=== PATIENT | female | born 1980 | race African-American/Black ===

== ENCOUNTER 2018-05-12 12:59 | Emergency (ER) | payer SELFPAY ==
[2018-05-12] MEDS ORDERED: FAMOTIDINE INJ/PF 20 MG/2 ML SDV IV ONE (13:19)
[2018-05-12] MEDS ORDERED: NORMAL SALINE 1000 ML 1,000 ML IV ONE (13:19)
[2018-05-12] MEDS ORDERED: ONDANSETRON HCL INJ/PF 4 MG/2 ML SDV IV ONE (13:19)
--- NOTE | 2018-05-12 13:21 | ER Document Report ---
ED GI/ - General Chief Complaint: Abdominal Pain Stated Complaint: VOMITING Time Seen by Provider: 05/12/18 13:10 Notes: 37-year-old female to the emergency department complaining of crampy abdominal pain, diarrhea and vomiting. Started after she went to [employer] last night. Has had for 5 episodes of crampy abdominal pain with diarrhea. Multiple episodes of vomiting. Cannot keep anything down. Denies any fever, chills, sweats. Denies any other problems at this time. TRAVEL OUTSIDE OF THE [place] IN LAST 30 DAYS: No - HPI Patient complains to provider of: Abdominal pain, Diarrhea, Vomiting - Related Data Allergies/Adverse Reactions: aspirin [Aspirin] Allergy (Verified 05/12/18 13:01) azithromycin [From Zithromax] Allergy (Verified 05/12/18 13:01) morphine [Morphine] Allergy (Verified 05/12/18 13:01) Penicillins Allergy (Verified 05/12/18 13:01) Past Medical History - General Information source: Patient - Social History Smoking Status: Current Every Day Smoker Chew tobacco use (# tins/day): No Frequency of alcohol use: None Drug Abuse: None Lives with: Family Family History: Reviewed & Not Pertinent Patient has suicidal ideation: No Patient has homicidal ideation: No Pulmonary Medical History: Reports: Hx Asthma Renal/ Medical History: Denies: Hx Peritoneal Dialysis - Immunizations Hx Diphtheria, Pertussis, Tetanus Vaccination: Yes Hx Pneumococcal Vaccination: 10/10/00 Review of Systems - Review of Systems Constitutional: No symptoms reported EENT: No symptoms reported Cardiovascular: No symptoms reported Respiratory: No symptoms reported Gastrointestinal: Abdominal pain, Diarrhea, Nausea, Vomiting Genitourinary: No symptoms reported Female Genitourinary: No symptoms reported Musculoskeletal: No symptoms reported Skin: No symptoms reported Hematologic/Lymphatic: No symptoms reported Neurological/Psychological: No symptoms reported Physical Exam - Vital signs Interpretation: Normal - General General appearance: Appears well, Alert - HEENT Head: Normocephalic, Atraumatic Eyes: Normal Pupils: PERRL - Respiratory Respiratory status: No respiratory distress Chest status: Nontender Breath sounds: Normal Chest palpation: Normal - Cardiovascular Rhythm: Regular Heart sounds: Normal auscultation Murmur: No - Abdominal Inspection: Normal Distension: No distension Bowel sounds: Hyperactive Tenderness: Nontender Organomegaly: No organomegaly - Back Back: Normal, Nontender - Extremities General upper extremity: Normal inspection, Nontender, Normal color, Normal ROM , Normal temperature General lower extremity: Normal inspection, Nontender, Normal color, Normal ROM , Normal temperature, Normal weight bearing. No: Khanh's sign - Neurological Neuro grossly intact: Yes Cognition: Normal Orientation: AAOx4 Janet Coma Scale Eye Opening: Spontaneous Florence Coma Scale Verbal: Oriented Florence Coma Scale Motor: Obeys Commands Janet Coma Scale Total: 15 Speech: Normal Motor strength normal: LUE, RUE, LLE, RLE Sensory: Normal - Psychological Associated symptoms: Normal affect, Normal mood - Skin Skin Temperature: Warm Skin Moisture: Dry Skin Color: Normal Course - Re-evaluation Re-evalutation: 05/12/18 13:32 At this time we will give her some Zofran, fluids. Check her labs and reassess. 05/12/18 14:25 Labs are unremarkable. Getting IV fluids and medicines at this time. Will DC shortly with nausea medicines. Instructions given with regards to acute gastroenteritis. 05/12/18 14:27 Laboratory 05/12/18 05/12/18 05/12/18 13:30 13:30 13:30 WBC 4.6 RBC 4.45 Hgb 13.8 Hct 40.9 MCV 92 MCH 31.0 MCHC 33.7 RDW 13.3 Plt Count 255 Seg Neutrophils % 46.9 Lymphocytes % 45.3 H Monocytes % 6.5 Eosinophils % 0.9 Basophils % 0.4 Absolute Neutrophils 2.2 Absolute Lymphocytes 2.1 Absolute Monocytes 0.3 Absolute Eosinophils 0.0 Absolute Basophils 0.0 Sodium 143.1 Potassium 4.7 Chloride 106 Carbon Dioxide 28 Anion Gap 9 BUN 13 Creatinine 0.83 Est GFR ( Amer) > 60 Est GFR (Non-Af Amer) > 60 Glucose 91 Calcium 9.6 Total Bilirubin 0.6 Direct Bilirubin 0.3 Neonat Total Bilirubin Not Reportable Neonat Direct Bilirubin Not Reportable Neonat Indirect Bili Not Reportable AST 26 ALT 33 Alkaline Phosphatase 96 Total Protein 7.3 Albumin 3.7 Lipase 72.2 Urine HCG, Qual NEGATIVE - Laboratory Result Diagrams: 05/12/18 13:30 05/12/18 13:30 Laboratory results interpreted by me: 05/12/18 13:30 Lymphocytes % 45.3 H Discharge - Discharge Clinical Impression: Gastroenteritis Condition: Good Disposition: HOME, SELF-CARE Instructions: Abdominal Pain ([facility]), Antinausea Medication ([facility]), Gastroenteritis (adult) ([facility]), Vomiting ([facility]) Additional Instructions: Take nausea medicines as needed for your nausea and vomiting. It is very important to this down as the diarrhea can lead to dehydration. In the event that you are unable to tolerate liquids, the nausea medicine is not working, you develop any blood in the stool or any worsening symptoms or concerns please return for repeat evaluation in the next 24 hours. Prescriptions: Ondansetron [Zofran Odt 4 mg Tablet] 1 - 2 tab PO Q4H PRN #15 tab.rapdis PRN Reason: For Nausea/Vomiting Ranitidine HCl [Zantac] 150 mg PO BID 7 Days #14 tablet Forms: Return to Work
[2018-05-12 14:00] LABS: ABSOLUTE LYMPHOCYTES (AUTO) 2.1 10^3/uL (0.5-4.7); ABSOLUTE MONOCYTES (AUTO) 0.3 10^3/uL (0.1-1.4); ABSOLUTE NEUT (AUTO) 2.2 10^3/uL (1.7-8.2); BASOPHILS % (AUTO) 0.4 % (0-2); EOSINOPHILS % (AUTO) 0.9 % (0-6); HEMATOCRIT 40.9 % (36.0-47.0); HEMOGLOBIN 13.8 g/dL (12.0-15.5); LYMPHOCYTES % (AUTO) 45.3 % (13-45); MEAN CORPUSCULAR HGB CONC 33.7 g/dL (32.0-36.0); MEAN CORPUSCULAR VOLUME 92 fl (80-97); MONOCYTES % (AUTO) 6.5 % (3-13); PLATELET COUNT 255 10^3/uL (150-450); RED BLOOD COUNT 4.45 10^6/uL (3.72-5.28); RED CELL DISTRIBUTION WIDTH 13.3 % (11.5-14.0); SEGMENTED NEUTROPHILS % (AUTO) 46.9 % (42-78); TOTAL CELLS COUNTED % (AUTO) 100 %; WHITE BLOOD COUNT 4.6 10^3/uL (4.0-10.5)
[2018-05-12 14:12] LABS: ALANINE AMINOTRANSFERASE 33 U/L (9-52); ALBUMIN 3.7 g/dL (3.5-5.0); ALKALINE PHOSPHATASE 96 U/L (38-126); ANION GAP 9 (5-19); ASPARTATE AMINO TRANSFERASE 26 U/L (14-36); BILIRUBIN,TOTAL 0.6 mg/dL (0.2-1.3); BLOOD UREA NITROGEN 13 mg/dL (7-20); CALCIUM 9.6 mg/dL (8.4-10.2); CARBON DIOXIDE 28 mmol/L (22-30); CHLORIDE 106 mmol/L (98-107); GLUCOSE 91 mg/dL (75-110); POTASSIUM 4.7 mmol/L (3.6-5.0); SODIUM 143.1 mmol/L (137-145)
[2018-05-12 14:13] LABS: BILIRUBIN,DIRECT 0.3 mg/dL (0.0-0.4); LIPASE 72.2 U/L (23-300); TOTAL PROTEIN 7.3 g/dL (6.3-8.2)
[2018-05-12 15:06] VITALS: BP 149/87
== END 2018-05-12 14:58 | disposition home or self-care (01) ==
LOC: ER 12:59
DX: K52.9 Noninfective gastroenteritis and colitis, unspecified (principal); R10.9 Unspecified abdominal pain; R11.10 Vomiting, unspecified; F17.200 Nicotine dependence, unspecified, uncomplicated; Z88.6 Allergy status to analgesic agent; Z88.3 Allergy status to other anti-infective agents; Z88.0 Allergy status to penicillin
CPT/HCPCS: 99284; 96374; 96375; 36415; 83690; 85025; 81025; 80053; J2405; J7030; S0028

== ENCOUNTER 2018-05-28 22:26 | Emergency (ER) | payer SELFPAY ==
[2018-05-28] MEDS ORDERED: DOXYCYCLINE HYCLATE 100 MG TABLET PO ONE (23:10)
[2018-05-28] MEDS ORDERED: ONDANSETRON 4 MG TAB.RAPDIS PO ONE (23:10)
[2018-05-28] MEDS ORDERED: DEXAMETHASONE SOD PHOS INJ 10 MG/1 ML VIAL IM ONE (23:10)
[2018-05-28] MEDS ORDERED: ALBUTEROL SULFATE HFA (90 MCG/PUFF) 8 GM MDI (1 MDI/ER DISP) IH ONE (23:10)
--- NOTE | 2018-05-28 23:14 | ER Document Report ---
ED General - General Chief Complaint: Cough Stated Complaint: COUGHING Time Seen by Provider: 05/28/18 23:01 Notes: Patient is a 37-year-old female who presents with complaint of severe sinus congestion, sore throat, recurrent cough. She does have history of asthma. She says her inhalers almost out. Symptoms have been ongoing for 5 days. She has been having fevers up to 102 at home. No vomiting. No abdominal pain. She does have some tightness in her chest with coughing. No chest pain or tightness before the coughing congestion began. No other complaints at this time. She has tried [id number] cold medications as well as over-the- counter allergy medications without any relief. TRAVEL OUTSIDE OF THE [place] IN LAST 30 DAYS: No - Related Data Allergies/Adverse Reactions: aspirin [Aspirin] Allergy (Verified 05/12/18 13:01) azithromycin [From Zithromax] Allergy (Verified 05/12/18 13:01) morphine [Morphine] Allergy (Verified 05/12/18 13:01) Penicillins Allergy (Verified 05/12/18 13:01) Past Medical History - Social History Smoking Status: Never Smoker Frequency of alcohol use: None Drug Abuse: None Family History: Reviewed & Not Pertinent Patient has suicidal ideation: No Patient has homicidal ideation: No Pulmonary Medical History: Reports: Hx Asthma Renal/ Medical History: Denies: Hx Peritoneal Dialysis - Immunizations Hx Diphtheria, Pertussis, Tetanus Vaccination: Yes Hx Pneumococcal Vaccination: 10/10/00 Review of Systems - Review of Systems Notes: My Normal Review Basic REVIEW OF SYSTEMS: CONSTITUTIONAL : Fever EENT: nasal congestion CARDIOVASCULAR: Some chest tightness with coughing. RESPIRATORY: cough and wheezing GASTROINTESTINAL: Denies abdominal pain. Denies nausea, vomiting, or diarrhea. MUSCULOSKELETAL: Denies neck or back pain or joint pain or swelling. SKIN: Denies rash or skin lesions. NEUROLOGICAL: Denies altered mental status or loss of consciousness. Sinus headache. Denies weakness or paralysis or loss of use of either side. Denies problems with gait or speech. Denies sensory or motor loss. ALL OTHER SYSTEMS REVIEWED AND NEGATIVE. Physical Exam - Notes Notes: General Appearance: Well nourished, alert, cooperative, no acute distress, recurrent coughing on exam. Large amount of audible congestion during exam. Vitals: reviewed, See vital signs table. Head: no swelling or tenderness to the head Eyes: PERRL, EOMI, Conjuctiva clear Mouth: No decreasd moisture Nares: Mildly inflamed turbinates. Throat: No tonsillar inflammation, No airway obstruction, No lymphadenopathy Neck: Supple, no neck tenderness, No swelling. Lungs: No wheezing, No rales, No rhonci, No accessory muscle use, good air exchange bilaterally. Heart: Normal rate, Regular rythm, No murmur, no rub Abdomen: Normal BS, soft, No rigidity, No abdominal tenderness, No guarding, no rebound, no abdominal masses, no organomegaly Extremities: good pulses in all extremities, no edema. Skin: warm, dry, appropriate color, no rash Neuro: speech clear, oriented x 3, normal affect, responds appropriately to questions. Cranial nerves II through XII are intact. Patient is able move all extremities on her own without difficulty. Course - Re-evaluation Re-evalutation: 05/28/18 23:19 On exam patient has a large amount of nasal congestion has recurrent dry cough. She did mention chest pain in triage but is more chest tightness with recurrent cough and congestion. I do not suspect this being of cardiac etiology whatsoever. She has had recurrent fevers at home and her symptoms were ongoing for almost a week. I will give her a dose of Decadron as I suspect that it could be bacterial component therefore placed on doxycycline. She said sometimes antibiotics make her throw up so therefore I will give her Zofran. Encourage her to return to ER if she has difficulty breathing, wheezing not responding to inhaler, recurrent fevers not responding to Tylenol, or she feels that she is worsening in weight. Patient agrees with plan will be discharged home. Dictation of this chart was performed using voice recognition software; therefore, there may be some unintended grammatical errors. Discharge - Discharge Clinical Impression: Sinusitis Qualifiers: Sinusitis location: unspecified location Chronicity: acute Recurrence: not specified as recurrent Qualified Code(s): J01.90 - Acute sinusitis, unspecified Acute bronchitis Qualifiers: Bronchitis organism: unspecified organism Qualified Code(s): J20.9 - Acute bronchitis, unspecified Condition: Good Disposition: HOME, SELF-CARE Additional Instructions: Please follow-up closely with primary care doctor in 3-4 days. Please return to the ER immediately if you have difficulty breathing, wheezing not responding to inhaler, recurrent fevers not responding to Tylenol, or if you feel that you are worsening. Prescriptions: Ondansetron [Zofran Odt 4 mg Tablet] 1 tab PO Q4HP PRN #10 tab.rapdis PRN Reason: Doxycycline Hyclate 100 mg PO BID #14 capsule Referrals: GALE HERNANDEZ DO [Primary Care Provider] - Follow up in 3-5 days
[2018-05-28 23:39] VITALS: BP 131/87
== END 2018-05-28 23:49 | disposition home or self-care (01) ==
LOC: ER 22:26
DX: J01.90 Acute sinusitis, unspecified (principal); J20.9 Acute bronchitis, unspecified; R50.9 Fever, unspecified; Z88.6 Allergy status to analgesic agent; Z88.3 Allergy status to other anti-infective agents; Z88.0 Allergy status to penicillin
CPT/HCPCS: 99283; 96372; S0119; J1100; J3490

== ENCOUNTER 2018-06-01 10:41 | Emergency (ER) | payer SELFPAY ==
[2018-06-01] MEDS ORDERED: PREDNISONE 20 MG TABLET PO ONE (11:05)
--- NOTE | 2018-06-01 11:07 | ER Document Report ---
ED General - General Mode of Arrival: Ambulatory Information source: Patient TRAVEL OUTSIDE OF THE [place] IN LAST 30 DAYS: No <EDEL LANDEROS - Last Filed: 06/01/18 13:24> <VEE MOHAN - Last Filed: 06/01/18 13:57> - General Chief Complaint: Breathing Difficulty Stated Complaint: DIFFICULTY BREATHING Time Seen by Provider: 06/01/18 10:57 Notes: Patient is a 37 year old female presenting to the emergency department via EMS complaining of cough and congestion onset over a week ago. Patient was seen in the emergency department for similar symptoms on 05/28/2018 and discharged home with Doxycycline. Patient states she is continuing to have a productive cough with yellowish sputum. Patient states she uses an albuterol rescue inhaler. Patient's last menstrual period was on 05/22/2018. (EDEL LANDEROS) - Related Data Allergies/Adverse Reactions: aspirin [Aspirin] Allergy (Verified 05/12/18 13:01) azithromycin [From Zithromax] Allergy (Verified 05/12/18 13:01) morphine [Morphine] Allergy (Verified 05/12/18 13:01) Penicillins Allergy (Verified 05/12/18 13:01) Past Medical History - General Information source: Patient - Social History Smoking Status: Never Smoker Cigarette use (# per day): No Chew tobacco use (# tins/day): No Smoking Education Provided: No Frequency of alcohol use: None Family History: Reviewed & Not Pertinent Pulmonary Medical History: Reports: Hx Asthma - Immunizations Hx Diphtheria, Pertussis, Tetanus Vaccination: Yes Hx Pneumococcal Vaccination: 10/10/00 <EDEL LANDEROS - Last Filed: 06/01/18 13:24> Review of Systems - Review of Systems Constitutional: No symptoms reported EENT: See HPI Cardiovascular: No symptoms reported Respiratory: See HPI, Cough Gastrointestinal: No symptoms reported Genitourinary: No symptoms reported Female Genitourinary: No symptoms reported Musculoskeletal: No symptoms reported Skin: No symptoms reported Hematologic/Lymphatic: No symptoms reported Neurological/Psychological: No symptoms reported -: Yes All other systems reviewed and negative <EDEL LANDEROS - Last Filed: 06/01/18 13:24> Physical Exam <EDEL LANDEROS - Last Filed: 06/01/18 13:24> <VEE MOHAN - Last Filed: 06/01/18 13:57> - Vital signs Vitals: Temp Resp BP Pulse Ox 97.9 F 18 139/97 H 98 06/01/18 10:50 06/01/18 10:50 06/01/18 10:50 06/01/18 10:50 - Notes Notes: GENERAL: Alert, interacts well. No acute distress. HEAD: Normocephalic, atraumatic. EYES: Pupils equal, round, and reactive to light. Extraocular movements intact. ENT: Oral mucosa moist, tongue midline. NECK: Full range of motion. Supple. Trachea midline. LUNGS: Bronchitic cough, wheezes. Nasal and sinus congestion. HEART: Regular rate and rhythm. No murmurs, gallops, or rubs. ABDOMEN: Soft, non-tender. Non-distended. Bowel sounds present in all 4 quadrants. EXTREMITIES: Moves all 4 extremities spontaneously. NEUROLOGICAL: Alert and oriented x3. Normal speech. PSYCH: Normal affect, normal mood. SKIN: Warm, dry, normal turgor. No rashes or lesions noted. (EDEL LANDEROS) Course - Laboratory Result Diagrams: 06/01/18 11:06 06/01/18 11:06 <EDEL LANDEROS - Last Filed: 06/01/18 13:24> - Laboratory Result Diagrams: 06/01/18 11:06 06/01/18 11:06 - Diagnostic Test Radiology reviewed: Image reviewed, Reports reviewed - Chest x-ray does not show an acute pulmonary process <VEE MOHAN - Last Filed: 06/01/18 13:57> - Re-evaluation Re-evalutation: 06/01/18 13:24 Patient retracted. Patient states she is feels a little better after receiving a breathing treatment. (EDEL LANDEROS) 06/01/18 13:57 After the DuoN[employer], the patient's wheezes have cleared, she does have coarse bronchitic cough when I ask her to cough, but I do not hear wheezes with it at this time. (VEE MOHAN) - Vital Signs Vital signs: Temp Pulse Resp BP Pulse Ox 97.9 F 74 18 126/88 H 100 06/01/18 10:50 06/01/18 11:42 06/01/18 11:42 06/01/18 11:42 06/01/18 11:42 - Laboratory Laboratory results interpreted by me: 06/01/18 11:06 Seg Neuts % (Manual) 29 L Lymphocytes % (Manual) 57 H Abs Neuts (Manual) 1.5 L Discharge <EDEL LANDEROS - Last Filed: 06/01/18 13:24> <VEE MOHAN - Last Filed: 06/01/18 13:57> - Discharge Clinical Impression: Bronchitis, acute, with bronchospasm Condition: Stable Disposition: HOME, SELF-CARE Additional Instructions: Bronchitis with Bronchospasm (Wheezing): You have bronchitis with bronchospasm (wheezing). Sometimes people develop wheezing with a chest cold. This occurs either because of an underlying tendency toward asthma or because the virus itself irritates the bronchial tubes. This irritation causes cough, shortness of breath, and wheezing. Emergency treatment of bronchospasm may include adrenaline shots or bronchodilator aerosol. You may feel lightheaded and have a rapid pulse for an hour or two. Rest and get plenty of fluids. At home, we'll treat you with a bronchodilator inhaler. Corticosteroids may be required for some patients. Until you recover, avoid chemical fumes, dusts, pollens, and exercising in very cold or dry air. If you smoke, stop now! Most cases of bronchitis get better without antibiotics. We prescribe antibiotics when we believe bacteria are damaging your airways, or if there's high risk the bronchitis will worsen into pneumonia. Increase your fluid intake. A cool mist humidifier may make your lungs more comfortable. An expectorant (cough medicine that loosens phlegm) can help. Repeated episodes of bronchitis and bronchospasm may result in lung damage -- for example, chronic bronchitis, recurrent pneumonias, or emphysema. If you develop a fever, increased wheezing, chest pain, or severe shortness of breath, you should contact the doctor immediately. Start the prednisone as prescribed tomorrow. Continue the doxycycline you were prescribed a few days ago. Use the albuterol inhaler 2 puffs every 4 hours for wheezing for the next few days. Drink plenty of fluids. Take Robitussin-DM to help suppress your cough. Rest. Follow-up with your doctor if not improving. RETURN TO THE EMERGENCY ROOM IF ANY NEW OR WORSENING SYMPTOMS. Prescriptions: Albuterol Sulfate [Proair HFA] 1 - 2 puff IH Q4 PRN #1 inhaler PRN Reason: Prednisone [Deltasone 10 mg Tablet] 10 mg PO ASDIR PRN #21 tablet PRN Reason: Referrals: GALE HERNANDEZ DO [Primary Care Provider] - Follow up as needed Scribe Attestation: 06/01/18 12:47 I personally performed the services described in the documentation, reviewed and edited the documentation which was dictated to the scribe in my presence, and it accurately records my words and actions. (VEE MOHAN) Scribe Documentation - Scribe Written by Naresh:: Naresh Bishop, 06/01/2018 11:13 acting as scribe for :: Joie <EDEL LANDEROS - Last Filed: 06/01/18 13:24>
[2018-06-01 11:38] LABS: HEMATOCRIT 39.5 % (36.0-47.0); HEMOGLOBIN 13.5 g/dL (12.0-15.5); MEAN CORPUSCULAR HEMOGLOBIN 31.2 pg (27.0-33.4); MEAN CORPUSCULAR HGB CONC 34.3 g/dL (32.0-36.0); MEAN CORPUSCULAR VOLUME 91 fl (80-97); PLATELET COUNT 300 10^3/uL (150-450); RED BLOOD COUNT 4.35 10^6/uL (3.72-5.28); RED CELL DISTRIBUTION WIDTH 13.7 % (11.5-14.0); WHITE BLOOD COUNT 5.2 10^3/uL (4.0-10.5)
--- NOTE | 2018-06-01 11:43 | RADIOLOGY REPORT (SQ) ---
EXAM DESCRIPTION: CHEST 2 VIEWS COMPLETED DATE/TIME: 06/01/2018 11:30 am REASON FOR STUDY: Cough, congestion, wheezing COMPARISON: None. EXAM PARAMETERS: NUMBER OF VIEWS: two views TECHNIQUE: Digital Frontal and Lateral radiographic views of the chest acquired. RADIATION DOSE: NA LIMITATIONS: none FINDINGS: LUNGS AND PLEURA: No opacities, masses or pneumothorax. No pleural effusion. MEDIASTINUM AND HILAR STRUCTURES: No masses or contour abnormalities. HEART AND VASCULAR STRUCTURES: Heart normal size. No evidence for failure. BONES: No acute findings. HARDWARE: None in the chest. OTHER: No other significant finding. IMPRESSION: NO ACUTE RADIOGRAPHIC FINDING IN THE CHEST. TECHNICAL DOCUMENTATION: JOB ID: [id number] [employer]- All Rights Reserved Reading location - IP/workstation name: [email or web address]
[2018-06-01 11:44] LABS: ALANINE AMINOTRANSFERASE 24 U/L (9-52); ALBUMIN 3.6 g/dL (3.5-5.0); ALKALINE PHOSPHATASE 90 U/L (38-126); ANION GAP 9 (5-19); ASPARTATE AMINO TRANSFERASE 21 U/L (14-36); BILIRUBIN,DIRECT 0.2 mg/dL (0.0-0.4); BILIRUBIN,TOTAL 0.5 mg/dL (0.2-1.3); BLOOD UREA NITROGEN 15 mg/dL (7-20); CALCIUM 9.3 mg/dL (8.4-10.2); CARBON DIOXIDE 27 mmol/L (22-30); CHLORIDE 107 mmol/L (98-107); GLUCOSE 89 mg/dL (75-110); POTASSIUM 3.9 mmol/L (3.6-5.0)
[2018-06-01 12:05] LABS: ABSOLUTE LYMPHOCYTES# (MANUAL) 3.1 10^3/uL (0.5-4.7); ABSOLUTE MONOCYTES # (MANUAL) 0.6 10^3/uL (0.1-1.4); ABSOLUTE NEUTROPHILS# (MANUAL) 1.5 10^3/uL (1.7-8.2); BASOPHILS % (MANUAL) 0 % (0-2); EOSINOPHILS % (MANUAL) 1 % (0-6); LYMPHOCYTES % (MANUAL) 57 % (13-45); MONOCYTES % (MANUAL) 11 % (3-13); SEGMENTED NEUTROPHILS % (MAN) 29 % (42-78); TOTAL CELLS COUNTED 100
[2018-06-01 12:06] LABS: OVALOCYTES SLIGHT; PLATELET COMMENT ADEQUATE; POIKILOCYTOSIS SLIGHT
[2018-06-01] MEDS ORDERED: IPRATROPIUM/ALBUTEROL 0.5-2.5 MG/3 ML AMPUL NEB ONE (12:37)
[2018-06-01 13:54] VITALS: BP 120/71
== END 2018-06-01 14:10 | disposition home or self-care (01) ==
LOC: ER 10:41
DX: J20.9 Acute bronchitis, unspecified (principal); R05 Cough; R09.81 Nasal congestion; J45.909 Unspecified asthma, uncomplicated; Z79.899 Other long term (current) drug therapy; Z88.6 Allergy status to analgesic agent; Z88.1 Allergy status to other antibiotic agents; Z88.5 Allergy status to narcotic agent; Z88.0 Allergy status to penicillin
CPT/HCPCS: 36415; 71046; 80053; 84703; 85025; 99285

== ENCOUNTER 2018-08-20 19:39 | Emergency (ER) | payer SELFPAY ==
[2018-08-20 20:18] LABS: APPEARANCE,URINE SLIGHTLY-CLOUDY; BILIRUBIN,URINE NEGATIVE (NEGATIVE); COLOR,URINE YELLOW; GLUCOSE, URINE NEGATIVE (NEGATIVE); KETONES,URINE NEGATIVE (NEGATIVE); LEUKOCYTE ESTERASE,URINE NEGATIVE (NEGATIVE); NITRITE,URINE NEGATIVE (NEGATIVE); PROTEIN,URINE NEGATIVE (NEGATIVE); URINE SPECIFIC GRAVITY 1.017; UROBILINOGEN,URINE NEGATIVE mg/dL (<2.0)
[2018-08-20 20:20] LABS: ABSOLUTE EOSINOPHILS # (AUTO) 0.1 10^3/uL (0.0-0.6); ABSOLUTE LYMPHOCYTES (AUTO) 3.2 10^3/uL (0.5-4.7); ABSOLUTE MONOCYTES (AUTO) 0.4 10^3/uL (0.1-1.4); ABSOLUTE NEUT (AUTO) 3.6 10^3/uL (1.7-8.2); BASOPHILS % (AUTO) 0.6 % (0-2); EOSINOPHILS % (AUTO) 1.4 % (0-6); HEMATOCRIT 40.3 % (36.0-47.0); HEMOGLOBIN 13.5 g/dL (12.0-15.5); LYMPHOCYTES % (AUTO) 43.8 % (13-45); MEAN CORPUSCULAR HEMOGLOBIN 30.4 pg (27.0-33.4); MEAN CORPUSCULAR HGB CONC 33.6 g/dL (32.0-36.0); MEAN CORPUSCULAR VOLUME 90 fl (80-97); MONOCYTES % (AUTO) 5.5 % (3-13); PLATELET COUNT 291 10^3/uL (150-450); RED BLOOD COUNT 4.46 10^6/uL (3.72-5.28); RED CELL DISTRIBUTION WIDTH 13.7 % (11.5-14.0); SEGMENTED NEUTROPHILS % (AUTO) 48.7 % (42-78); TOTAL CELLS COUNTED % (AUTO) 100 %; WHITE BLOOD COUNT 7.4 10^3/uL (4.0-10.5)
[2018-08-20 20:21] VITALS: BP 149/92
[2018-08-20] MEDS ORDERED: NORMAL SALINE 1000 ML 1,000 ML IV ONE (20:43)
[2018-08-20] MEDS ORDERED: ONDANSETRON HCL INJ/PF 4 MG/2 ML SDV IV ONE (20:43)
--- NOTE | 2018-08-20 20:44 | ER Document Report ---
ED Medical Screen (RME) - General Chief Complaint: Abdominal Pain Stated Complaint: ABDOMINAL PAIN Time Seen by Provider: 08/20/18 20:40 Notes: 37-year-old female chief complaint of abdominal pain starting 3 days ago, reports repeated episodes of diarrhea about 6 times a day, vomited a couple of times today, states she cannot eat. No obvious contacts, recent travel or exposure. Pain is in the left lower abdomen. Denies other areas of pain. Denies any surgeries. Denies . TRAVEL OUTSIDE OF THE [place] IN LAST 30 DAYS: No - Related Data Allergies/Adverse Reactions: aspirin [Aspirin] Allergy (Verified 05/12/18 13:01) azithromycin [From Zithromax] Allergy (Verified 05/12/18 13:01) morphine [Morphine] Allergy (Verified 05/12/18 13:01) Penicillins Allergy (Verified 05/12/18 13:01) Past Medical History - Social History Frequency of alcohol use: None Drug Abuse: None Pulmonary Medical History: Reports: Hx Asthma Renal/ Medical History: Denies: Hx Peritoneal Dialysis - Immunizations Hx Diphtheria, Pertussis, Tetanus Vaccination: Yes Physical Exam - Vital signs Vitals: Temp Pulse Resp BP Pulse Ox 98.2 F 75 18 149/92 H 100 08/20/18 20:20 08/20/18 20:20 08/20/18 20:20 08/20/18 20:20 08/20/18 20:20 - General General appearance: Appears well In distress: None - Abdominal Tenderness: Tender - Mild generalized lower abdominal tenderness, possibly worse than the left, limited evaluation because of sitting position Course - Re-evaluation Re-evalutation: 08/20/18 20:43 I have greeted and performed a rapid initial assessment of this patient. A comprehensive ED assessment and evaluation of the patient, analysis of test results and completion of the medical decision making process will be conducted by additional ED providers. Note: nursing protocol has already been ordered and has partially completed upon my assessment - Vital Signs Vital signs: Temp Pulse Resp BP Pulse Ox 98.2 F 75 18 149/92 H 100 08/20/18 20:20 08/20/18 20:20 08/20/18 20:20 08/20/18 20:20 08/20/18 20:20 - Laboratory Result Diagrams: 08/20/18 19:50 08/20/18 19:50 Doctor's Discharge - Discharge Referrals: GALE HERNANDEZ DO [Primary Care Provider] - Follow up as needed
[2018-08-20 21:01] LABS: ALANINE AMINOTRANSFERASE 25 U/L (9-52); ALBUMIN 4.1 g/dL (3.5-5.0); ALKALINE PHOSPHATASE 115 U/L (38-126); ANION GAP 12 (5-19); ASPARTATE AMINO TRANSFERASE 25 U/L (14-36); BILIRUBIN,DIRECT 0.3 mg/dL (0.0-0.4); BILIRUBIN,TOTAL 0.5 mg/dL (0.2-1.3); BLOOD UREA NITROGEN 11 mg/dL (7-20); CALCIUM 9.4 mg/dL (8.4-10.2); CARBON DIOXIDE 28 mmol/L (22-30); CHLORIDE 104 mmol/L (98-107); GLUCOSE 92 mg/dL (75-110); LIPASE 113.4 U/L (23-300); POTASSIUM 4.3 mmol/L (3.6-5.0); SODIUM 143.7 mmol/L (137-145); TOTAL PROTEIN 7.5 g/dL (6.3-8.2)
[2018-08-20] MEDS ORDERED: LOPERAMIDE HCL 2 MG CAPSULE PO ONE (21:13)
[2018-08-20] MEDS ORDERED: METRONIDAZOLE 500 MG TABLET PO ONE (21:33)
[2018-08-20] MEDS ORDERED: CEPHALEXIN 500 MG CAPSULE PO ONE (21:33)
--- NOTE | 2018-08-20 21:35 | ER Document Report ---
ED General - General Chief Complaint: Abdominal Pain Stated Complaint: ABDOMINAL PAIN Time Seen by Provider: 08/20/18 20:40 Notes: Patient is a 37-year old female without chronic medical problems who presents with 2-3 days of diarrhea, vomiting and left lower quadrant abdominal pain. She describes the left lower quadrant as being a constant, aching, throbbing pain. Nothing improves or worsens the pain. She states that she has been able to tolerate oral intake but does have ongoing nausea. She denies any history of similar symptoms in the past. She has not seen her general doctor regarding today's concerns. She has not had fever or constitutional symptoms at home. TRAVEL OUTSIDE OF THE [place] IN LAST 30 DAYS: No - Related Data Allergies/Adverse Reactions: aspirin [Aspirin] Allergy (Verified 05/12/18 13:01) azithromycin [From Zithromax] Allergy (Verified 05/12/18 13:01) morphine [Morphine] Allergy (Verified 05/12/18 13:01) Penicillins Allergy (Verified 05/12/18 13:01) Past Medical History - General Information source: Patient - Social History Smoking Status: Current Every Day Smoker Frequency of alcohol use: None Drug Abuse: None Lives with: Family Family History: Reviewed & Not Pertinent Patient has suicidal ideation: No Patient has homicidal ideation: No Pulmonary Medical History: Reports: Hx Asthma Renal/ Medical History: Denies: Hx Peritoneal Dialysis - Immunizations Hx Diphtheria, Pertussis, Tetanus Vaccination: Yes Hx Pneumococcal Vaccination: 10/10/00 Review of Systems - Review of Systems Notes: Constitutional: Negative for fever. HENT: Negative for sore throat. Eyes: Negative for visual changes. Cardiovascular: Negative for chest pain. Respiratory: Negative for shortness of breath. Gastrointestinal: Positive for abdominal pain, vomiting and diarrhea Genitourinary: Negative for dysuria. Musculoskeletal: Negative for back pain. Skin: Negative for rash. Neurological: Negative for headaches, weakness or numbness. 10 point ROS negative except as marked above and in HPI. Physical Exam - Vital signs Vitals: Temp Pulse Resp BP Pulse Ox 98.2 F 75 18 149/92 H 100 08/20/18 20:20 08/20/18 20:20 08/20/18 20:20 08/20/18 20:20 08/20/18 20:20 Interpretation: Normal Notes: PHYSICAL EXAMINATION: GENERAL: Well-appearing, well-nourished and in no acute distress. HEAD: Atraumatic, normocephalic. EYES: Pupils equal round and reactive to light, extraocular movements intact, sclera anicteric, conjunctiva are normal. ENT: nares patent, oropharynx clear without exudates. Moist mucous membranes. NECK: Normal range of motion, supple without lymphadenopathy LUNGS: Breath sounds clear to auscultation bilaterally and equal. No wheezes rales or rhonchi. HEART: Regular rate and rhythm without murmurs ABDOMEN: Soft, mild focal tenderness to the left lower quadrant with no additional areas of localized tenderness. Normoactive bowel sounds. No guarding, no rebound. No masses appreciated. EXTREMITIES: Normal range of motion, no pitting or edema. No cyanosis. NEUROLOGICAL: No focal neurological deficits. Moves all extremities spontaneously and on command. PSYCH: Normal mood, normal affect. SKIN: Warm, Dry, normal turgor, no rashes or lesions noted. Course - Re-evaluation Re-evalutation: 08/20/18 21:32 Patient presents with focal left lower quadrant abdominal tenderness with associated nausea, vomiting and Promise. Her abdominal exam is otherwise completely benign without any other areas of terminal tenderness on palpation. Her labs are unremarkable without evidence of leukocytosis. She has no upper abdominal pain to suggest a biliary pathology, pancreatitis, hepatitis. She has tolerated oral intake without any difficulty. Very low clinical suspicion for acute appendicitis, bowel obstruction. Given the absence of fever, normal white blood cell count, otherwise very reassuring abdominal exam patient and I have discussed proceeding with CT versus outpatient follow-up on empiric antibiotics for presumed diagnosis of diverticulitis. The patient has understood the risks and benefits of CT versus treatment based on exam, vitals and history and has elected to avoid CT. She will be started on cephalexin and metronidazole, NSAIDs for pain, and Zofran as needed for nausea. At this time will discharge with return precautions and follow-up recommendations. Verbal discharge instructions given a the bedside and opportunity for questions given. Medication warnings reviewed. Patient is in agreement with this plan and has verbalized understanding of return precautions and the need for primary care follow-up in the next 24-72 hours. - Vital Signs Vital signs: Temp Pulse Resp BP Pulse Ox 98.2 F 75 18 149/92 H 100 08/20/18 20:20 08/20/18 20:20 08/20/18 20:20 08/20/18 20:20 08/20/18 20:20 - Laboratory Result Diagrams: 08/20/18 19:50 08/20/18 19:50 Discharge - Discharge Clinical Impression: Acute diverticulitis, Abdominal pain, left lower quadrant Condition: Good Disposition: HOME, SELF-CARE Additional Instructions: You were seen today for focal pain in your left lower quadrant. Your labs, exam , and imag history Ing suggest a diagnosis of diverticulitis. This is an inflammation of a part of your colon. You are being started on antibiotics to treat this infection and inflammation. Please take all of them as directed and complete them even if your symptoms resolve. For your pain: Take ibuprofen 600 mg and acetaminophen 1000 mg every 6 hours together as needed for pain. Please follow-up with your primary care physician within the next 48 hours. Return to the emergency department immediately if you develop worsening pain, persistent vomiting, began having bloody stools, develop a fever of greater than 101F, or have any other symptoms that are concerning to you. Prescriptions: Cephalexin Monohydrate [Keflex 500 mg Capsule] 500 mg PO Q6H 7 Days capsule Metronidazole [Flagyl 500 mg Tablet] 500 mg PO Q6H #28 tablet Ondansetron [Zofran Odt 4 mg Tablet] 1 - 2 tab PO Q4H PRN #15 tab.rapdis PRN Reason: For Nausea/Vomiting Referrals: GALE HERNANDEZ DO [NO LOCAL MD] - Follow up in 3-5 days
== END 2018-08-20 21:49 | disposition home or self-care (01) ==
LOC: ER 19:39
DX: K57.92 Diverticulitis of intestine, part unspecified, without perforation or abscess without bleeding (principal); R10.32 Left lower quadrant pain; R10.814 Left lower quadrant abdominal tenderness; R19.7 Diarrhea, unspecified; R11.2 Nausea with vomiting, unspecified; F17.200 Nicotine dependence, unspecified, uncomplicated; J45.909 Unspecified asthma, uncomplicated; Z88.6 Allergy status to analgesic agent; Z88.1 Allergy status to other antibiotic agents; Z88.5 Allergy status to narcotic agent; Z88.0 Allergy status to penicillin
CPT/HCPCS: 99284; 96361; 96374; 36415; 83690; 84703; 85025; 80053; 81001; J2405; J7030

== ENCOUNTER 2018-09-26 10:41 | Emergency (ER) | payer SELFPAY ==
[2018-09-26] MEDS ORDERED: METOCLOPRAMIDE HCL INJ/PF 10 MG/2 ML SDV IV ONE (11:06)
[2018-09-26] MEDS ORDERED: DIPHENHYDRAMINE HCL 50 MG/ML VIAL IV ONE (11:06)
[2018-09-26] MEDS ORDERED: KETOROLAC TROMETHAMINE INJ/PF 30 MG/1 ML SDV IV ONE (11:07)
[2018-09-26] MEDS ORDERED: ONDANSETRON 4 MG TAB.RAPDIS PO ONE (11:07)
--- NOTE | 2018-09-26 11:11 | ER Document Report ---
ED General - General Chief Complaint: Nausea/Vomiting Stated Complaint: VOMITING,ABDOMINAL PAIN,FEVER Time Seen by Provider: 09/26/18 11:02 Mode of Arrival: Ambulatory Information source: Patient, [facility] Records Notes: 37-year-old female with asthma presents with complaint of headache, nausea, vomiting and fever. Patient reports a fever of 102 at home. Patient states that today she had persistent vomiting. She denies any abdominal pain except for during vomiting. She denies any chest pain, cough, rhinorrhea, shortness of breath, dysuria, hematuria, vaginal discharge. Patient has not had a flu shot. Headache is located in the temporal region described as a mild throbbing. Patient states that she does have a history of migraines but this headache is not as bad. She did take Tylenol but quickly vomited it. TRAVEL OUTSIDE OF THE [place] IN LAST 30 DAYS: No - HPI Onset: Other Onset/Duration: Gradual, Persistent Quality of pain: Throbbing Severity: Mild Associated symptoms: Fever, Headache, Nausea, Vomiting. denies: Chest pain, Shortness of breath Exacerbated by: Food Relieved by: Denies Similar symptoms previously: Yes Recently seen / treated by doctor: No - Related Data Allergies/Adverse Reactions: aspirin [Aspirin] Allergy (Verified 05/12/18 13:01) azithromycin [From Zithromax] Allergy (Verified 05/12/18 13:01) morphine [Morphine] Allergy (Verified 05/12/18 13:01) Penicillins Allergy (Verified 05/12/18 13:01) Past Medical History - General Information source: Patient, [facility] Records - Social History Smoking Status: Never Smoker Frequency of alcohol use: None Drug Abuse: None Lives with: Family Family History: Reviewed & Not Pertinent Patient has suicidal ideation: No Patient has homicidal ideation: No Pulmonary Medical History: Reports: Hx Asthma Renal/ Medical History: Denies: Hx Peritoneal Dialysis - Immunizations Hx Diphtheria, Pertussis, Tetanus Vaccination: Yes Hx Pneumococcal Vaccination: 10/10/00 Review of Systems - Review of Systems Notes: REVIEW OF SYSTEMS: CONSTITUTIONAL : Denies sweats. Denies recent illness. Denies weight loss, recent hospitalizations. EENT: Denies visual changes, eye pain. Denies sore throat, oral lesions, difficulty swallowing. CARDIOVASCULAR: Denies chest pain. Denies palpitations. Denies lower extremity edema. RESPIRATORY: Denies cough. Denies shortness of breath, wheezing. GASTROINTESTINAL: Denies abdominal distention. Denies diarrhea. Denies blood in vomitus, stools, or per rectum. Denies black, tarry stools. Denies constipation. GENITOURINARY: Denies difficulty urinating, painful urination, frequency, blood in urine, or vaginal discharge. MUSCULOSKELETAL: Denies back or neck pain or stiffness. Denies joint pain or swelling. SKIN: Denies rash, lesions or sores. HEMATOLOGIC : Denies easy bruising or bleeding. LYMPHATIC: Denies swollen glands. NEUROLOGICAL: Denies confusion or altered mental status. Denies loss of consciousness. Denies dizziness or lightheadedness. Denies weakness or paralysis. Denies problems difficulty with ambulation, slurred speech. Denies sensory loss, numbness, or tingling. Denies seizures. PSYCHIATRIC: Denies anxiety or stress. Denies depression, suicidal ideation, or homicidal ideation. Denies visual or auditory hallucinations. Physical Exam - Vital signs Vitals: Temp Pulse Resp BP Pulse Ox 99.2 F 94 20 144/95 H 97 09/26/18 10:45 09/26/18 10:45 09/26/18 10:45 09/26/18 10:45 09/26/18 10:45 - Notes Notes: PHYSICAL EXAMINATION: GENERAL: Ill-appearing but not toxic HEAD: Atraumatic, normocephalic. EYES: Pupils equal round and reactive to light, extraocular movements intact, conjunctiva are normal. ENT: Nares patent, oropharynx clear without exudates. Moist mucous membranes. NECK: Normal range of motion, supple without lymphadenopathy. No nuchal rigidity, meningismus. LUNGS: Breath sounds clear to auscultation bilaterally and equal. No wheezes rales or rhonchi. HEART: Regular rate and rhythm without murmurs ABDOMEN: Soft, nontender, nondistended abdomen. No guarding, no rebound. No masses appreciated. Female : deferred Musculoskeletal: Normal range of motion, no pitting or edema. No cyanosis. NEUROLOGICAL: Cranial nerves grossly intact. Normal speech, normal gait. Normal sensory, motor exams PSYCH: Normal mood, normal affect. SKIN: Warm, Dry, normal turgor, no rashes or lesions noted. Course - Re-evaluation Re-evalutation: Laboratory 09/26/18 09/26/18 11:10 11:10 Urine Color YELLOW Urine Appearance SLIGHTLY-CLOUDY Urine pH 5.0 Ur Specific [place] 1.010 Urine Protein NEGATIVE Urine Glucose (UA) NEGATIVE Urine Ketones NEGATIVE Urine Blood NEGATIVE Urine Nitrite NEGATIVE Urine Bilirubin NEGATIVE Urine Urobilinogen NEGATIVE Ur Leukocyte Esterase TRACE H Urine WBC (Auto) 4 Urine RBC (Auto) 1 Urine Bacteria (Auto) TRACE Squamous Epi Cells Auto 8 Urine Mucus (Auto) RARE Urine Ascorbic Acid NEGATIVE Urine HCG, Qual NEGATIVE Influenza A (Rapid) NEGATIVE Influenza B (Rapid) NEGATIVE Temp Pulse Resp BP Pulse Ox 99.0 F 71 20 116/68 98 09/26/18 12:46 09/26/18 12:46 09/26/18 12:46 09/26/18 12:46 09/26/18 12:46 Presentation of an overall well-appearing patient in no acute distress with complaints of nausea, vomiting,headache . This is consistent with likely viral illness. Patient has no abdominal tenderness on exam and specifically no tenderness in the RLQ, LLQ, RUQ. Overall well hydrated on exam. Vital signs reviewed upon arrival and within normal limits. Although the patient reports fever she is afebrile here and has not taking any medication today. She is able to tolerate oral intake here in the emergency department after 1 dose of Reglan. Low clinical suspicion for any acute life-threatening etiology based on exam and history including acute cholecystitis, SBO, appendicitis, nephrolithiasis, or pylonephritis. Headache was resolved with Reglan and Benadryl. I do not suspect meningitis as the patient is neurologically intact, has no nuchal rigidity or meningismus. Will plan for discharge at this time with return precautions and followup recommendations. 09/26/18 12:38 Patient reports improvement of headache, nausea after receiving Reglan, Benadryl and Toradol. 09/26/18 12:56 Patient was evaluated and treated as appropriate for the patient's presenting symptoms and complaint, with consideration of any critical or life threatening conditions that may be associated with their obtained history and exam as noted above. All results were discussed with patient. Patient provided the opportunity to ask questions, and express concerns. Patient was educated on treatments based on their presumed diagnosis as noted above. At this time we will discharge the patient with return precautions and follow-up recommendations. Verbal discharge instructions given a the bedside. Medication warnings reviewed. Patient is in agreement with this plan and has verbalized understanding of return precautions. After careful consideration I feel that that patient can be safely discharged from the emergency department, they were advised to followup with a primary care physician in 2-3 days. Dictation on this chart was performed using voice recognition software and may result in unintended grammatical, spelling, syntax or errors. - Vital Signs Vital signs: Temp Pulse Resp BP Pulse Ox 99.0 F 71 20 116/68 98 09/26/18 12:46 09/26/18 12:46 09/26/18 12:46 09/26/18 12:46 09/26/18 12:46 - Laboratory Laboratory results interpreted by me: 09/26/18 11:10 Ur Leukocyte Esterase TRACE H Discharge - Discharge Clinical Impression: Viral illness Nausea & vomiting Qualifiers: Vomiting type: unspecified Vomiting Intractability: non-intractable Qualified Code(s): R11.2 - Nausea with vomiting, unspecified Headache Qualifiers: Headache type: unspecified Headache chronicity pattern: unspecified pattern Intractability: not intractable Qualified Code(s): R51 - Headache Instructions: Fever ([facility]), Headache ([facility]), Reglan ([facility]), Vomiting ([facility]) Additional Instructions: You were for the flu. Your urinalysis showed no evidence of infection. Your symptoms are likely due to a viral illness and should resolve in the next several days. If you develop diarrhea you can take [id number] loperamide also known as Imodium as needed for diarrhea per box instructions. Continue to stay hydrated with plenty of solution such as Gatorade or Pedialyte. You are being prescribed Zofran to take as needed for nausea and vomiting. Please return if you develop severe abdominal pain, pass out, become unable to tolerate any oral fluids for 12 more hours, or any other symptoms that are concerning to you. You have been seen in the Emergency Department (ED) for a headache. Please use Tylenol (acetaminophen) or Motrin (ibuprofen) as needed for symptoms, but only as written on the box. As we have discussed, please follow up with your primary care doctor as soon as possible regarding today's ED visit and your headache symptoms. Call your doctor or return to the ED if you have a worsening headache, sudden and severe headache, confusion, slurred speech, facial droop, weakness or numbness in any arm or leg, extreme fatigue, or other symptoms that concern you. Prescriptions: Ondansetron [Zofran Odt 4 mg Tablet] 1 tab PO Q6H PRN #15 tab.rapdis PRN Reason: For Nausea/Vomiting Referrals: [facility] [NO LOCAL MD] - Follow up as needed
[2018-09-26 11:53] LABS: APPEARANCE,URINE SLIGHTLY-CLOUDY; BILIRUBIN,URINE NEGATIVE (NEGATIVE); COLOR,URINE YELLOW; GLUCOSE, URINE NEGATIVE (NEGATIVE); KETONES,URINE NEGATIVE (NEGATIVE); LEUKOCYTE ESTERASE,URINE TRACE (NEGATIVE); NITRITE,URINE NEGATIVE (NEGATIVE); PROTEIN,URINE NEGATIVE (NEGATIVE); UROBILINOGEN,URINE NEGATIVE mg/dL (<2.0)
[2018-09-26 11:59] LABS: A TYPE INFLUENZA AG NEGATIVE (NEGATIVE); B INFLUENZA AG NEGATIVE (NEGATIVE)
[2018-09-26 12:54] VITALS: BP 116/68
== END 2018-09-26 12:51 | disposition home or self-care (01) ==
LOC: ER 10:41
DX: R11.2 Nausea with vomiting, unspecified (principal); B34.9 Viral infection, unspecified; R51 Headache; R50.9 Fever, unspecified; R10.9 Unspecified abdominal pain; Z88.6 Allergy status to analgesic agent; Z88.3 Allergy status to other anti-infective agents; Z88.0 Allergy status to penicillin
CPT/HCPCS: 99284; 96374; 96375; 81025; 81001; 87804; J1200; S0119; J1885; J2765

== ENCOUNTER 2019-01-15 12:38 | Emergency (ER) | payer SELFPAY ==
[2019-01-15] MEDS ORDERED: ONDANSETRON HCL INJ/PF 4 MG/2 ML SDV IV ONE (13:20)
--- NOTE | 2019-01-15 13:21 | ER Document Report ---
ED Medical Screen (RME) - General Chief Complaint: Nausea/Vomiting/Diarrhea Stated Complaint: VOMITING Time Seen by Provider: 01/15/19 13:15 Mode of Arrival: Ambulatory Information source: Patient Notes: Patient is a 38-year-old female who presents to the emergency department with complaints of fever, vomiting and left lower quadrant abdominal pain that started on Tuesday. Patient reports she may also be constipated. Patient denies any diarrhea. Denies any sick contacts. Patient denies any dysuria or abnormal discharge. Exam: Tenderness to palpation to left lower quadrant. I have greeted and performed a rapid initial assessment of this patient. A comprehensive ED assessment and evaluation of the patient, analysis of test results and completion of the medical decision making process will be conducted by additional ED providers. Dictation of this chart was performed using voice recognition software; therefore, there may be some unintended grammatical errors. TRAVEL OUTSIDE OF THE [place] IN LAST 30 DAYS: No - Related Data Allergies/Adverse Reactions: aspirin [Aspirin] Allergy (Verified 01/15/19 12:42) azithromycin [From Zithromax] Allergy (Verified 01/15/19 12:42) morphine [Morphine] Allergy (Verified 01/15/19 12:42) Penicillins Allergy (Verified 01/15/19 12:42) Past Medical History Pulmonary Medical History: Reports: Hx Asthma Renal/ Medical History: Denies: Hx Peritoneal Dialysis - Immunizations Hx Diphtheria, Pertussis, Tetanus Vaccination: Yes Physical Exam - Vital signs Vitals: Temp Pulse Resp BP Pulse Ox 98.3 F 103 H 18 138/87 H 95 01/15/19 12:46 01/15/19 12:46 01/15/19 12:46 01/15/19 12:46 01/15/19 12:46 Course - Vital Signs Vital signs: Temp Pulse Resp BP Pulse Ox 98.3 F 103 H 18 138/87 H 95 01/15/19 12:46 01/15/19 12:46 01/15/19 12:46 01/15/19 12:46 01/15/19 12:46
--- NOTE | 2019-01-15 13:48 | RADIOLOGY REPORT (SQ) ---
EXAM DESCRIPTION: KUB/ABDOMEN (SINGLE VIEW) COMPLETED DATE/TIME: 01/15/2019 1:34 pm REASON FOR STUDY: eval for constipation COMPARISON: None. NUMBER OF VIEWS: One view. TECHNIQUE: Supine radiographic image of the abdomen acquired. LIMITATIONS: None. FINDINGS: BOWEL GAS PATTERN: Nonobstructive gas pattern. There is moderate stool in the colon. CALCIFICATIONS: No suspicious calcifications. SOFT TISSUES: No gross mass or suggestion of organomegaly. HARDWARE: None in the abdomen. BONES: No acute fracture. No worrisome bone lesions. OTHER: No other significant finding. IMPRESSION: Constipation. TECHNICAL DOCUMENTATION: JOB ID: [id number] [employer]- All Rights Reserved Reading location - IP/workstation name: [email or web address]
[2019-01-15] MEDS ORDERED: METOCLOPRAMIDE HCL ORAL SOLN 10 MG/10 ML UDCUP PO ONE (14:17)
[2019-01-15] MEDS ORDERED: LIDOCAINE 2% VISCOUS SOLN 20 ML UDCUP PO ONE (14:17)
[2019-01-15] MEDS ORDERED: MAG HYDROX/AL HYDROX/SIMETH SUSP 30 ML UDCUP PO ONE (14:17)
[2019-01-15] MEDS ORDERED: RINGERS SOLUTION,LACTATED 1,000 ML IV ONE (14:18)
[2019-01-15] MEDS ORDERED: DICYCLOMINE HCL 20 MG TABLET PO ONE (14:18)
[2019-01-15] MEDS ORDERED: MAGNESIUM CITRATE 296 ML BOTTLE PO ONE (14:19)
--- NOTE | 2019-01-15 14:25 | ER Document Report ---
ED General - General Chief Complaint: Nausea/Vomiting/Diarrhea Stated Complaint: VOMITING Time Seen by Provider: 01/15/19 13:15 Mode of Arrival: Ambulatory Information source: Patient, [facility] Records Notes: 38-year-old female with asthma presents with 4 days of left lower quadrant abdominal pain, nausea, vomiting. Patient describes the pain as cramping, constant. Patient reports inability to tolerate anything by mouth. She also reports a fever of 102. Patient is having flatus. She denies sick contacts, recent travel, recent antibiotic use. Patient has had prior similar symptoms and multiple previous ED visits with the exact symptoms she is except describing today. Patient denies headache, chest pain, shortness of breath, dysuria, hematuria, vaginal discharge. Patient has no surgical history. TRAVEL OUTSIDE OF THE [place] IN LAST 30 DAYS: No - HPI Onset: Last week Onset/Duration: Gradual, Constant, Persistent Quality of pain: Cramping Severity: Moderate Associated symptoms: Fever, Nausea, Vomiting Exacerbated by: Food Relieved by: Denies Similar symptoms previously: Yes Recently seen / treated by doctor: No - Related Data Allergies/Adverse Reactions: aspirin [Aspirin] Allergy (Verified 01/15/19 12:42) azithromycin [From Zithromax] Allergy (Verified 01/15/19 12:42) morphine [Morphine] Allergy (Verified 01/15/19 12:42) Penicillins Allergy (Verified 01/15/19 12:42) Past Medical History - General Information source: Patient - Social History Smoking Status: Never Smoker Frequency of alcohol use: None Drug Abuse: None Lives with: Family Family History: Reviewed & Not Pertinent Patient has suicidal ideation: No Patient has homicidal ideation: No Pulmonary Medical History: Reports: Hx Asthma Renal/ Medical History: Denies: Hx Peritoneal Dialysis - Immunizations Hx Diphtheria, Pertussis, Tetanus Vaccination: Yes Hx Pneumococcal Vaccination: 10/10/00 Review of Systems - Review of Systems Notes: REVIEW OF SYSTEMS: CONSTITUTIONAL : Denies chills, or sweats. Denies recent illness. Denies weight loss, recent hospitalizations. EENT: Denies visual changes, eye pain. Denies sore throat, oral lesions, difficulty swallowing. CARDIOVASCULAR: Denies chest pain. Denies palpitations. Denies lower extremity edema. RESPIRATORY: Denies cough. Denies shortness of breath, wheezing. GASTROINTESTINAL: Denies abdominal pain or distention. Denies diarrhea. Denies blood in vomitus, stools, or per rectum. Denies black, tarry stools. GENITOURINARY: Denies difficulty urinating, painful urination, frequency, blood in urine, or vaginal discharge. MUSCULOSKELETAL: Denies back or neck pain or stiffness. Denies joint pain or swelling. SKIN: Denies rash, lesions or sores. HEMATOLOGIC : Denies easy bruising or bleeding. LYMPHATIC: Denies swollen glands. NEUROLOGICAL: Denies confusion or altered mental status. Denies loss of consciousness. Denies dizziness or lightheadedness. Denies headache. Denies weakness or paralysis. Denies problems difficulty with ambulation, slurred speech. Denies sensory loss, numbness, or tingling. Denies seizures. PSYCHIATRIC: Denies anxiety or stress. Denies depression, suicidal ideation, or homicidal ideation. Denies visual or auditory hallucinations. Physical Exam - Vital signs Vitals: Temp Pulse Resp BP Pulse Ox 98.3 F 103 H 18 138/87 H 95 01/15/19 12:46 01/15/19 12:46 01/15/19 12:46 01/15/19 12:46 01/15/19 12:46 - Notes Notes: PHYSICAL EXAMINATION: GENERAL: Well-appearing, well-nourished and in no acute distress. HEAD: Atraumatic, normocephalic. EYES: Pupils equal round and reactive to light, extraocular movements intact, conjunctiva are normal. ENT: Nares patent, oropharynx clear without exudates. Moist mucous membranes. NECK: Normal range of motion, supple without lymphadenopathy LUNGS: Breath sounds clear to auscultation bilaterally and equal. No wheezes rales or rhonchi. HEART: Regular rate and rhythm without murmurs ABDOMEN: Soft, tenderness with palpation to the left lower quadrant. Negative McBurney's, negative Gaming's. No guarding, no rebound. No masses appreciated. Female : deferred Musculoskeletal: Normal range of motion, no pitting or edema. No cyanosis. NEUROLOGICAL: Cranial nerves grossly intact. Normal speech, normal gait. Normal sensory, motor exams PSYCH: Normal mood, normal affect. SKIN: Warm, Dry, normal turgor, no rashes or lesions noted. Course - Re-evaluation Re-evalutation: KUB X-Ray 01/15/19 13:20 IMPRESSION: Constipation. 01/15/19 14:24 38-year-old female presents with nausea, vomiting, abdominal pain for 4 days. Patient has had prior similar symptoms and multiple ED visits for similar symptoms. Vital signs reviewed and except for mild tachycardia are within normal limits. Patient does not appear toxic or dehydrated. She is in no acute distress. Patient received IV fluids, Zofran, Bentyl, mag citrate. KUB obtained and showed constipation. Normal bowel gas pattern. Urinalysis not consistent with urinary tract infection. Patient is now tolerating fluids. Exam consistent with constipation which the patient has been seen for multiple times previously. Patient was discharged home with fleets enema, Zofran and MiraLAX. Patient was evaluated and treated as appropriate for the patient's presenting symptoms and complaint, with consideration of any critical or life threatening conditions that may be associated with their obtained history and exam as noted above. All results were discussed with patient. Patient provided the opportunity to ask questions, and express concerns. Patient was educated on treatments based on their presumed diagnosis as noted above. At this time we will discharge the patient with return precautions and follow-up recommendations. Verbal discharge instructions given a the bedside. Medication warnings reviewed. Patient is in agreement with this plan and has verbalized understanding of return precautions. After careful consideration I feel that that patient can be safely discharged from the emergency department, they were advised to followup with a primary care physician in 2-3 days. Dictation on this chart was performed using voice recognition software and may result in unintended grammatical, spelling, syntax or errors. 01/15/19 15:16 - Vital Signs Vital signs: Temp Pulse Resp BP Pulse Ox 98.3 F 81 18 122/72 99 01/15/19 15:15 01/15/19 15:15 01/15/19 15:15 01/15/19 15:15 01/15/19 15:15 - Laboratory Laboratory results interpreted by me: 01/15/19 14:21 Urine Blood SMALL H - Diagnostic Test Radiology reviewed: Image reviewed, Reports reviewed Discharge - Discharge Clinical Impression: Constipation Qualifiers: Constipation type: unspecified constipation type Qualified Code(s): K59.00 - Constipation, unspecified Abdominal pain Qualifiers: Abdominal location: lower abdomen, unspecified Qualified Code(s): R10.30 - Lower abdominal pain, unspecified Nausea & vomiting Qualifiers: Vomiting type: unspecified Vomiting Intractability: non-intractable Qualified Code(s): R11.2 - Nausea with vomiting, unspecified Condition: Good Disposition: HOME, SELF-CARE Instructions: Abdominal Pain ([facility]), Constipation ([facility]), Vomiting ([facility]) Additional Instructions: Follow up with your [id number] hours for further care or return to the ED IMMEDIATELY if symptoms worsen or you have any concerns. If you cannot afford to follow up with your primary care physician a list of low cost clinics have been provided at the end of your discharge papers as well. Most prescribed medications have multiple side effects. The safest thing to do is when filling your prescription speak to your pharmacist regarding possible interactions with your normal home medications and over the counter medications such as Ibuprofen, Tylenol, Benadryl. If you experience any symptoms that cause you discomfort or concern you should discontinue the medication immediately and return to the emergency room or call your primary care physician. Prescriptions: Na Phos,M-B/Na Phos,Di-Ba [Fleet Enema (Adult) 133 ml] 1 applic SC DAILYP PRN #5 enema PRN Reason: Ondansetron [Zofran Odt 4 mg Tablet] 1 - 2 tab PO Q4H PRN #15 tab.rapdis PRN Reason: For Nausea/Vomiting Polyethylene Glycol 3350 [Miralax] 765 gm PO DAILY #1 bottle Forms: Elevated Blood Pressure
[2019-01-15 14:59] LABS: APPEARANCE,URINE SLIGHTLY-CLOUDY; BILIRUBIN,URINE NEGATIVE (NEGATIVE); COLOR,URINE YELLOW; GLUCOSE, URINE NEGATIVE (NEGATIVE); KETONES,URINE NEGATIVE (NEGATIVE); LEUKOCYTE ESTERASE,URINE NEGATIVE (NEGATIVE); NITRITE,URINE NEGATIVE (NEGATIVE); PROTEIN,URINE NEGATIVE (NEGATIVE); URINE SPECIFIC GRAVITY 1.013; UROBILINOGEN,URINE NEGATIVE mg/dL (<2.0)
[2019-01-15 15:16] VITALS: BP 122/72
== END 2019-01-15 16:07 | disposition home or self-care (01) ==
LOC: ER 12:38
DX: K59.00 Constipation, unspecified (principal); R10.32 Left lower quadrant pain; R10.814 Left lower quadrant abdominal tenderness; R11.2 Nausea with vomiting, unspecified; R50.9 Fever, unspecified; R00.0 Tachycardia, unspecified; J45.909 Unspecified asthma, uncomplicated; Z88.6 Allergy status to analgesic agent; Z88.1 Allergy status to other antibiotic agents; Z88.5 Allergy status to narcotic agent; Z88.0 Allergy status to penicillin
CPT/HCPCS: 99284; 96361; 96374; 36415; 81025; 81001; 74018; J3490 ×3; J2405; J7120

== ENCOUNTER 2019-01-30 12:23 | Emergency (ER) | payer SELFPAY ==
[2019-01-30 12:33] VITALS: BP 147/80
[2019-01-30] MEDS ORDERED: PSEUDOEPHEDRINE HCL 30 MG TABLET PO ONE (12:45)
[2019-01-30] MEDS ORDERED: LIDOCAINE 2% VISCOUS SOLN 20 ML UDCUP PO ONE (12:45)
--- NOTE | 2019-01-30 12:46 | ER Document Report ---
HPI - HPI Patient complains to provider of: Sore throat Time Seen by Provider: 01/30/19 12:39 Onset: Last week Onset/Duration: Persistent Quality of pain: Achy Pain Level: 5 Context: Patient presents complaining of sore throat and cough for the past week. Patient denies any fever. Associated Symptoms: Nonproductive cough, Rhinnorhea, Sore throat. denies: Fever Exacerbated by: Denies Relieved by: Denies Similar symptoms previously: Yes Recently seen / treated by doctor: No - ROS ROS below otherwise negative: Yes Systems Reviewed and Negative: Yes All other systems reviewed and negative - EENT EENT: REPORTS: Sore Throat, Nasal Drainage-Clear, Congestion - CARDIOVASCULAR Cardiovascular: DENIES: Chest pain - RESPIRATORY Respiratory: REPORTS: Coughing. DENIES: Trouble Breathing - GASTROINTESTINAL Gastrointestinal: DENIES: Nausea, Patient vomiting - REPRODUCTIVE Reproductive: DENIES: : - DERM Skin Color: Normal Skin Problems: None Past Medical History - General Information source: Patient - Social History Smoking Status: Never Smoker Frequency of alcohol use: None Drug Abuse: None Occupation: Hotel work Family History: Reviewed & Not Pertinent Pulmonary Medical History: Reports: Hx Asthma Renal/ Medical History: Denies: Hx Peritoneal Dialysis Surgical Hx: Negative - Immunizations Hx Diphtheria, Pertussis, Tetanus Vaccination: Yes Hx Pneumococcal Vaccination: 10/10/00 Vertical Provider Document - CONSTITUTIONAL Agree With Documented VS: Yes Exam Limitations: No Limitations General Appearance: WD/WN, No Apparent Distress - INFECTION CONTROL TRAVEL OUTSIDE OF THE [place] IN LAST 30 DAYS: No - HEENT HEENT: Atraumatic, Normocephalic, Pharyngeal Tenderness, Pharyngeal Erythema. negative: Pharyngeal Exudate, Tympanic Membrane Red, Tympanic Membrane Bulging Notes: clear rhinorrhea - NECK Neck: Lymphadenopathy-Left, Lymphadenopathy-Right - RESPIRATORY Respiratory: Breath Sounds Normal, No Respiratory Distress - CARDIOVASCULAR Cardiovascular: Regular Rate, Regular Rhythm, No Murmur - BACK Back: Normal Inspection - MUSCULOSKELETAL/EXTREMETIES Musculoskeletal/Extremeties: MAEW - NEURO Level of Consciousness: Awake, Alert, Appropriate Motor/Sensory: No Motor Deficit - DERM Integumentary: Warm, Dry, No Rash Course - Vital Signs Vital signs: Temp Pulse Resp BP Pulse Ox 98.3 F 92 18 147/80 H 99 01/30/19 12:32 01/30/19 12:32 01/30/19 12:32 01/30/19 12:32 01/30/19 12:32 - Laboratory Laboratory results interpreted by me: 01/30/19 13:12 Labs- Entire Visit 01/30/19 12:36 Group A Strep Rapid NEGATIVE Discharge - Discharge Clinical Impression: Sore throat Upper respiratory infection Qualifiers: URI type: unspecified URI Qualified Code(s): J06.9 - Acute upper respiratory infection, unspecified Condition: Stable Disposition: HOME, SELF-CARE Instructions: Sore Throat ([facility]), Upper Respiratory Illness ([facility]) Additional Instructions: Return immediately for any new or worsening symptoms Followup with your primary care provider, call tomorrow to make a followup appointment Throat culture is pending, we will call if you need any different treatment Prescriptions: Benzonatate [Tessalon Perle 100 mg Capsule] 100 mg PO Q8HP PRN #20 cap PRN Reason: Guaifenesin/Pseudoephedrne HCl [Mucinex D ER 1,200-120 mg Tab] 1 each PO Q12 PRN #12 tab.er.12h PRN Reason: Forms: Return to Work Referrals: [facility] [Provider Group] - Follow up as needed
[2019-01-30] MEDS ORDERED: DEXAMETHASONE 4 MG TABLET PO ONE (13:12)
== END 2019-01-30 13:22 | disposition home or self-care (01) ==
LOC: ER 12:23
DX: J06.9 Acute upper respiratory infection, unspecified (principal); J02.9 Acute pharyngitis, unspecified; R05 Cough; J34.89 Other specified disorders of nose and nasal sinuses
CPT/HCPCS: 99283; 87070; 87880; J3490

== ENCOUNTER 2019-03-22 07:17 | Emergency (ER) | payer SELFPAY ==
--- NOTE | 2019-03-22 08:02 | EKG REPORT ---
SEVERITY:- NORMAL ECG - SINUS RHYTHM : Confirmed by: Neftali Olivera MD 22-Mar-2019 08:01:50
[2019-03-22 08:24] LABS: ABSOLUTE EOSINOPHILS # (AUTO) 0.1 10^3/uL (0.0-0.6); ABSOLUTE LYMPHOCYTES (AUTO) 2.2 10^3/uL (0.5-4.7); ABSOLUTE MONOCYTES (AUTO) 0.4 10^3/uL (0.1-1.4); ABSOLUTE NEUT (AUTO) 2.4 10^3/uL (1.7-8.2); BASOPHILS % (AUTO) 0.7 % (0-2); EOSINOPHILS % (AUTO) 1.8 % (0-6); HEMATOCRIT 38.4 % (36.0-47.0); LYMPHOCYTES % (AUTO) 42.7 % (13-45); MEAN CORPUSCULAR HGB CONC 33.9 g/dL (32.0-36.0); MEAN CORPUSCULAR VOLUME 91 fl (80-97); MONOCYTES % (AUTO) 8.2 % (3-13); PLATELET COUNT 297 10^3/uL (150-450); RED CELL DISTRIBUTION WIDTH 14.2 % (11.5-14.0); SEGMENTED NEUTROPHILS % (AUTO) 46.6 % (42-78); TOTAL CELLS COUNTED % (AUTO) 100 %; WHITE BLOOD COUNT 5.1 10^3/uL (4.0-10.5)
[2019-03-22] MEDS ORDERED: PROCHLORPERAZINE EDISYLATE INJ 10 MG/2 ML VIAL IV ONE (08:26)
[2019-03-22] MEDS ORDERED: NORMAL SALINE 1000 ML 1,000 ML IV ONE (08:26)
[2019-03-22] MEDS ORDERED: DIPHENHYDRAMINE HCL 50 MG/ML VIAL IV ONE (08:26)
[2019-03-22 08:51] LABS: ALANINE AMINOTRANSFERASE 32 U/L (9-52); ALKALINE PHOSPHATASE 122 U/L (38-126); ASPARTATE AMINO TRANSFERASE 26 U/L (14-36); BILIRUBIN,DIRECT 0.2 mg/dL (0.0-0.4); BILIRUBIN,TOTAL 0.5 mg/dL (0.2-1.3); BLOOD UREA NITROGEN 18 mg/dL (7-20); CALCIUM 9.7 mg/dL (8.4-10.2); CARBON DIOXIDE 30 mmol/L (22-30); CHLORIDE 105 mmol/L (98-107); CREATINE KINASE 155 U/L (30-135); GLUCOSE 103 mg/dL (75-110); SODIUM 138.9 mmol/L (137-145); TOTAL PROTEIN 7.5 g/dL (6.3-8.2)
[2019-03-22 08:54] LABS: ANION GAP 4 (5-19)
--- NOTE | 2019-03-22 09:07 | ER Document Report ---
Entered by EDEL LANDEROS SCRIBE 03/22/19 0849 Acting as scribe for:VEE MOHAN MD ED General - General Chief Complaint: Chest Pain Stated Complaint: CHEST PAIN Time Seen by Provider: 03/22/19 07:54 Mode of Arrival: Ambulatory Information source: Patient Notes: Patient is a 38 year old female with asthma presents to the emergency department complaining of chest pain and a headache onset this morning. Patient states she was already awake this morning when she developed chest pain around 0500. She describes her chest pain as a tightness similar to an asthma exacerbation. She states approximately 1 hr later, she developed a headache. She reports frequently having headaches. She also complains of associated photophobia. TRAVEL OUTSIDE OF THE [place] IN LAST 30 DAYS: No - Related Data Allergies/Adverse Reactions: aspirin [Aspirin] Allergy (Verified 03/22/19 07:19) azithromycin [From Zithromax] Allergy (Verified 03/22/19 07:19) morphine [Morphine] Allergy (Verified 03/22/19 07:19) Penicillins Allergy (Verified 03/22/19 07:19) Past Medical History - General Information source: Patient - Social History Smoking Status: Never Smoker Cigarette use (# per day): No Chew tobacco use (# tins/day): No Smoking Education Provided: No Frequency of alcohol use: None Drug Abuse: None Lives with: Family Family History: Reviewed & Not Pertinent Patient has suicidal ideation: No Patient has homicidal ideation: No Pulmonary Medical History: Reports: Hx Asthma, Hx Bronchitis - Immunizations Hx Diphtheria, Pertussis, Tetanus Vaccination: Yes Hx Pneumococcal Vaccination: 10/10/00 Review of Systems - Review of Systems Constitutional: No symptoms reported EENT: See HPI Cardiovascular: See HPI, Chest pain Respiratory: No symptoms reported Gastrointestinal: No symptoms reported Genitourinary: No symptoms reported Female Genitourinary: No symptoms reported Musculoskeletal: No symptoms reported Skin: No symptoms reported Hematologic/Lymphatic: No symptoms reported Neurological/Psychological: See HPI, Headaches -: Yes All other systems reviewed and negative Physical Exam - Vital signs Vitals: Temp Pulse Resp BP Pulse Ox 97.7 F 79 24 H 149/95 H 100 03/22/19 07:27 03/22/19 07:27 03/22/19 07:27 03/22/19 07:27 03/22/19 07:27 - Notes Notes: GENERAL: Alert. Patient appears photophobic and keeps her eyes covered and closed throughout interview. No acute distress. HEAD: Normocephalic, atraumatic. Temporal forehead and scalp are tender to palpation. EYES: Pupils equal, round, and reactive to light. Extraocular movements intact. ENT: Oral mucosa moist, tongue midline. NECK: Full range of motion. Supple. Trachea midline. LUNGS: Frequent cough. Clear to auscultation bilaterally, no wheezes, rales, or rhonchi. No respiratory distress. Anterior chest wall minimally tender to p alpation. HEART: Regular rate and rhythm. No murmurs, gallops, or rubs. ABDOMEN: Soft, non-tender. Non-distended. Bowel sounds present in all 4 quadrants. No guarding, rigidity, or rebound. EXTREMITIES: Moves all 4 extremities spontaneously. NEUROLOGICAL: Alert and oriented x3. Normal speech. PSYCH: Anxious. SKIN: Warm, dry, normal turgor. No rashes or lesions noted. Course - Re-evaluation Re-evalutation: 03/22/19 09:57 Patient was sleeping soundly. When she is awakened, she states her headache is much better. There is still tenderness to palpate the frontal and temporal scalp muscles. - Vital Signs Vital signs: Temp Pulse Resp BP Pulse Ox 97.7 F 79 18 112/67 95 03/22/19 07:27 03/22/19 07:27 03/22/19 09:31 03/22/19 09:31 03/22/19 09:31 - Laboratory Result Diagrams: 03/22/19 08:09 03/22/19 08:09 Laboratory results interpreted by me: 03/22/19 03/22/19 08:09 08:09 RDW 14.2 H Anion Gap 4 L Creatine Kinase 155 H Discharge - Discharge Clinical Impression: Headache Qualifiers: Headache type: tension-type Headache chronicity pattern: episodic headache Intractability: not intractable Qualified Code(s): G44.219 - Episodic tension- type headache, not intractable Condition: Stable Disposition: HOME, SELF-CARE Additional Instructions: Tension Headache Your problem has been diagnosed as muscle tension headache. This very common type of headache occurs because of tightness in the muscles of the head and neck. The cause may be neck or jaw joint problems, but most commonly the cause is emotional stress. The headache may last hours or days. The treatment of uncomplicated tension headaches is rest and pain medication. Often, the newer antiinflammatory pain medications are prescribed, as these also decrease the irritability of the painful tissues. Muscle relaxers, cold packs, or warm packs are sometimes helpful. Anti-anxiety medication or narcotics are sometimes needed temporarily, but are best avoided in the long run. Your doctor has evaluated your headache problem, and finds no evidence of a serious health problem as a cause for the headache. If your headache becomes more severe, or if new symptoms develop (such as fever, stiff neck, vomiting, or decreasing alertness) you should be re-examined by the physician. Drink plenty of fluids and get plenty of rest today. Follow-up with your primary care provider if not improving. RETURN TO THE EMERGENCY ROOM IF ANY NEW OR WORSENING SYMPTOMS. Forms: Return to Work Scribe Attestation: 03/22/19 09:08 I personally performed the services described in the documentation, reviewed and edited the documentation which was dictated to the scribe in my presence, and it accurately records my words and actions. I personally performed the services described in the documentation, reviewed and edited the documentation which was dictated to the scribe in my presence, and it accurately records my words and actions.
[2019-03-22 09:15] LABS: APPEARANCE,URINE CLEAR; BILIRUBIN,URINE NEGATIVE (NEGATIVE); COLOR,URINE YELLOW; GLUCOSE, URINE NEGATIVE (NEGATIVE); KETONES,URINE NEGATIVE (NEGATIVE); LEUKOCYTE ESTERASE,URINE NEGATIVE (NEGATIVE); NITRITE,URINE NEGATIVE (NEGATIVE); PROTEIN,URINE NEGATIVE (NEGATIVE); URINE SPECIFIC GRAVITY 1.009; UROBILINOGEN,URINE NEGATIVE mg/dL (<2.0)
[2019-03-22 10:12] VITALS: BP 137/83
== END 2019-03-22 10:10 | disposition home or self-care (01) ==
LOC: ER 07:17
DX: G44.219 Episodic tension-type headache, not intractable (principal); R07.9 Chest pain, unspecified; H53.149 Visual discomfort, unspecified; J45.909 Unspecified asthma, uncomplicated
CPT/HCPCS: 93005; 99284; 96361; 96374; 96375; 36415; 82550; 85025; 80053; 81001; 84484; 93010; J1200; J0780; J7030

== ENCOUNTER 2019-06-28 05:34 | Emergency (ER) | payer SELFPAY ==
[2019-06-28] MEDS ORDERED: IPRATROPIUM/ALBUTEROL 0.5-2.5 MG/3 ML AMPUL NEB ONE (05:42)
[2019-06-28] MEDS ORDERED: PREDNISONE 20 MG TABLET PO ONE (05:42)
[2019-06-28] MEDS: ALBUTEROL SULFATE 0.083% NEB 2.5 MG/3 ML AMPUL NEB SCH ×2 (05:52→06:25)
--- NOTE | 2019-06-28 06:02 | ER Document Report ---
ED General - General Chief Complaint: Shortness Of Breath Stated Complaint: DIFFICULTY BREATHING Time Seen by Provider: 06/28/19 05:57 TRAVEL OUTSIDE OF THE [place] IN LAST 30 DAYS: No - HPI Patient complains to provider of: SOb Notes: 38-year-old -Al[place] female presents with increasing shortness of breath and wheezing for 1 day. Patient does have a history of asthma is not on any daily controller medications just uses her albuterol as needed. Patient denies any new sputum production or fever chills or exposures. - Related Data Allergies/Adverse Reactions: aspirin [Aspirin] Allergy (Verified 03/22/19 07:19) azithromycin [From Zithromax] Allergy (Verified 03/22/19 07:19) morphine [Morphine] Allergy (Verified 03/22/19 07:19) Penicillins Allergy (Verified 03/22/19 07:19) Past Medical History - Social History Smoking Status: Unknown if Ever Smoked Family History: Reviewed & Not Pertinent Pulmonary Medical History: Reports: Hx Asthma, Hx Bronchitis Renal/ Medical History: Denies: Hx Peritoneal Dialysis - Immunizations Hx Diphtheria, Pertussis, Tetanus Vaccination: Yes Hx Pneumococcal Vaccination: 10/10/00 Review of Systems - Review of Systems Notes: REVIEW OF SYSTEMS: CONSTITUTIONAL: -fevers, -chills EENT: -eye pain, -difficulty swallowing, -nasal congestion CARDIOVASCULAR: -chest pain, -syncope. RESPIRATORY: -cough, positive SOB, wheezing GASTROINTESTINAL: -abdominal pain, -nausea, -vomiting, -diarrhea GENITOURINARY: -dysuria, -hematuria MUSCULOSKELETAL: -back pain, -neck pain SKIN: -rash or skin lesions. HEMATOLOGIC: -easy bruising or bleeding. LYMPHATIC: -swollen, enlarged glands. NEUROLOGICAL: -altered mental status or loss of consciousness, -headache, - neurologic symptoms PSYCHIATRIC: -anxiety, -depression. ALL OTHER SYSTEMS REVIEWED AND NEGATIVE. Physical Exam - Vital signs Vitals: Temp Pulse Resp BP Pulse Ox 98.1 F 91 20 104/65 97 06/28/19 05:48 06/28/19 05:48 06/28/19 05:48 06/28/19 05:48 06/28/19 05:48 - Notes Notes: PHYSICAL EXAMINATION: GENERAL: Well-appearing, well-nourished and in no acute distress. HEAD: Atraumatic, normocephalic. EYES: Pupils equal round and reactive to light, extraocular movements intact, sclera anicteric, conjunctiva are normal. ENT: nares patent, oropharynx clear without exudates. Moist mucous membranes. NECK: Normal range of motion, supple without lymphadenopathy LUNGS: Minimal expiratory wheezing HEART: Regular rate and rhythm without murmurs ABDOMEN: Soft, nontender, normoactive bowel sounds. No guarding, no rebound. No masses appreciated. EXTREMITIES: Normal range of motion, no pitting or edema. No cyanosis. NEUROLOGICAL: Cranial nerves grossly intact. Normal speech, normal gait. Normal sensory and motor exams. PSYCH: Normal mood, normal affect. SKIN: Warm, Dry, normal turgor, no rashes or lesions noted. Course - Re-evaluation Re-evalutation: 06/28/19 06:02 Well-appearing female no acute distress, mild expiratory wheezing. Will given oral steroids and multiple nebs steroids. Reevaluation patient feeling markedly improved will be discharged home follow-up with PCP given prescription for steroids 06/28/19 06:29 - Vital Signs Vital signs: Temp Pulse Resp BP Pulse Ox 98.1 F 91 26 H 126/71 H 97 06/28/19 05:48 06/28/19 05:48 06/28/19 06:12 06/28/19 06:12 06/28/19 06:12 Discharge - Discharge Clinical Impression: Asthma Qualifiers: Asthma severity: mild Asthma persistence: unspecified Asthma complication type: with acute exacerbation Qualified Code(s): J45.901 - Unspecified asthma with (acute) exacerbation Condition: Stable Disposition: HOME, SELF-CARE Instructions: Asthma ([facility]) Prescriptions: Methylprednisolone [Medrol Dosepack (4 mg/Tab) 21 Tab/Dosepak] 4 mg PO ASDIR PRN #21 tab.ds.pk PRN Reason: Referrals: [facility] [Provider Group] - Follow up as needed
[2019-06-28 06:27] VITALS: BP 126/71
--- NOTE | 2019-06-28 06:50 | RADIOLOGY REPORT (SQ) ---
EXAM DESCRIPTION: XR CHEST 2 VIEWS COMPLETED DATE/TME: 06/28/2019 05:42 CLINICAL HISTORY: 38 years, Female, difficulty breathing COMPARISON: 06/01/2018 chest NUMBER OF VIEWS: 2 view chest TECHNIQUE: Frontal and lateral views of the chest LIMITATIONS: None. FINDINGS: Heart size normal. Lungs clear. No pneumothorax IMPRESSION: Negative chest copyright 2010 [facility] [employer]- All Rights Reserved
== END 2019-06-28 06:54 | disposition home or self-care (01) ==
LOC: ER 05:34
DX: J45.901 Unspecified asthma with (acute) exacerbation (principal); R06.02 Shortness of breath; Z88.8 Allergy status to other drugs, medicaments and biological substances; Z88.1 Allergy status to other antibiotic agents; Z88.5 Allergy status to narcotic agent; Z88.0 Allergy status to penicillin
CPT/HCPCS: 71046; J7512; J7620

== ENCOUNTER 2019-10-14 10:22 | Emergency (ER) | payer SELFPAY ==
[2019-10-14 10:40] VITALS: BP 135/87
--- NOTE | 2019-10-14 11:29 | ER Document Report ---
HPI - HPI Time Seen by Provider: 10/14/19 11:07 Notes: Otherwise healthy 38-year-old female presents the emergency department with flulike symptoms. Patient reports fever and body aches. States symptoms have been going on for the last 4 days. Patient reports nausea, denies vomiting or diarrhea. - REPRODUCTIVE Reproductive: DENIES: : Past Medical History - General Information source: Patient - Social History Smoking Status: Never Smoker Family History: Reviewed & Not Pertinent Pulmonary Medical History: Reports: Hx Asthma, Hx Bronchitis Renal/ Medical History: Denies: Hx Peritoneal Dialysis - Immunizations Hx Diphtheria, Pertussis, Tetanus Vaccination: Yes Hx Pneumococcal Vaccination: 10/10/00 Vertical Provider Document - CONSTITUTIONAL Notes: PHYSICAL EXAMINATION: GENERAL: Well-appearing, well-nourished and in no acute distress. HEAD: Atraumatic, normocephalic. EYES: Pupils equal round and reactive to light, extraocular movements intact, conjunctiva are normal. ENT: Nares patent, oropharynx clear without exudates. Moist mucous membranes. NECK: Normal range of motion, supple without lymphadenopathy LUNGS: Breath sounds clear to auscultation bilaterally and equal. No wheezes rales or rhonchi. HEART: Regular rate and rhythm without murmurs ABDOMEN: Soft, nontender, nondistended abdomen. No guarding, no rebound. No masses appreciated. Female : deferred Musculoskeletal: Normal range of motion, no pitting or edema. No cyanosis. NEUROLOGICAL: Cranial nerves grossly intact. Normal speech, normal gait. Normal sensory, motor exams PSYCH: Normal mood, normal affect. SKIN: Warm, Dry, normal turgor, no rashes or lesions noted. - INFECTION CONTROL TRAVEL OUTSIDE OF THE [place] IN LAST 30 DAYS: No Course - Re-evaluation Re-evalutation: Laboratory 10/14/19 10/14/19 11:35 11:35 Urine Color YELLOW Urine Appearance CLOUDY Urine pH 5.0 Ur Specific [place] 1.018 Urine Protein NEGATIVE Urine Glucose (UA) NEGATIVE Urine Ketones NEGATIVE Urine Blood SMALL H Urine Nitrite (Reflex) NEGATIVE Urine Bilirubin NEGATIVE Urine Urobilinogen NEGATIVE Leukocyte Esterase Rfl NEGATIVE Urine RBC (Auto) 1 Urine WBC (Reflex) 3 Squamous Epi Cells Auto 11 Urine Mucus (Auto) OCC Urine Ascorbic Acid NEGATIVE Influenza A (Rapid) NEGATIVE Influenza B (Rapid) POSITIVE Patient appears well, nontoxic, positive for flu B. Discussed conservative treatment measures at home, outlined in discharge instructions. Patient verbalizes understanding and agreement with this plan. - Vital Signs Vital signs: Temp Pulse Resp BP Pulse Ox 99.5 F 108 H 16 135/87 H 97 10/14/19 10:38 10/14/19 10:38 10/14/19 10:38 10/14/19 10:38 10/14/19 10:38 Discharge - Discharge Clinical Impression: Influenza Condition: Stable Disposition: HOME, SELF-CARE Additional Instructions: You tested positive for the flu today. Unfortunately there is no treatment for the flu as it is a virus. Please drink plenty of fluids to keep yourself hydrated. You should expect to have body aches for up to 7 days. Take Tylenol and/or ibuprofen to help with your symptoms. You may also purchase an [id number] medication such as Robitussin or Dimetapp if it helps with your symptoms. Please try to stay out of the general public and if you have to go out please wear a mask. Forms: Return to Work
[2019-10-14 11:52] LABS: APPEARANCE,URINE CLOUDY; BILIRUBIN,URINE NEGATIVE (NEGATIVE); COLOR,URINE YELLOW; GLUCOSE, URINE NEGATIVE (NEGATIVE); KETONES,URINE NEGATIVE (NEGATIVE); PROTEIN,URINE NEGATIVE (NEGATIVE); URINE SPECIFIC GRAVITY 1.018; UROBILINOGEN,URINE NEGATIVE mg/dL (<2.0)
[2019-10-14 12:03] LABS: A TYPE INFLUENZA AG NEGATIVE (NEGATIVE); B INFLUENZA AG POSITIVE (NEGATIVE)
== END 2019-10-14 12:35 | disposition home or self-care (01) ==
LOC: ER 10:22
DX: J11.1 Influenza due to unidentified influenza virus with other respiratory manifestations (principal); R50.9 Fever, unspecified; M79.10 Myalgia, unspecified site
CPT/HCPCS: 81001; 87804; 99283

== ENCOUNTER 2019-10-18 08:21 | Emergency (ER) | payer SELFPAY ==
[2019-10-18] MEDS ORDERED: NORMAL SALINE 1000 ML 1,000 ML IV ONE (09:21)
--- NOTE | 2019-10-18 09:31 | ER Document Report ---
ED Medical Screen (RME) - General Chief Complaint: Flu Symptoms Stated Complaint: FLU SYMPTOMS TRAVEL OUTSIDE OF THE [place] IN LAST 30 DAYS: No - HPI Notes: 10/18/19 09:31 10/18/19 09:22 25-year-old female presents emergency room for evaluation of productive cough, stomach cramping, congestion and sore throat overall general weakness that is been going on since Tuesday. Patient did test positive for influenza B on Tuesdayoct 14, patient states she was not prescribed any Tamiflu, she is been trying [id number] ibuprofen and Tylenol without relief. Patient denies any chest pain, reports chest wall pain with coughing. Decreased eating and drinking. I have greeted and performed a rapid initial assessment of this patient. A comprehensive ED assessment and evaluation of the patient, analysis of test results and completion of the medical decision making process will be conducted by additional ED providers. PHYSICAL EXAMINATION: GENERAL: Acutely ill well-nourished and in no acute distress. HEAD: Atraumatic, normocephalic. NECK: Normal range of motion CV: s1, s2 regular LUNGS: No respiratory distress Musculoskeletal: Normal range of motion NEUROLOGICAL: Normal speech, normal gait. SKIN: Warm, Dry, normal turgor, no rashes or lesions noted. Physical Exam - Related Data Allergies/Adverse Reactions: aspirin [Aspirin] Allergy (Verified 03/22/19 07:19) azithromycin [From Zithromax] Allergy (Verified 03/22/19 07:19) morphine [Morphine] Allergy (Verified 03/22/19 07:19) Penicillins Allergy (Verified 03/22/19 07:19) Past Medical History Pulmonary Medical History: Reports: Hx Asthma, Hx Bronchitis Renal/ Medical History: Denies: Hx Peritoneal Dialysis - Immunizations Hx Diphtheria, Pertussis, Tetanus Vaccination: Yes Physical Exam - Vital signs Vitals: Temp Pulse Resp BP Pulse Ox 98.1 F 107 H 20 149/88 H 97 10/18/19 08:25 10/18/19 08:25 10/18/19 08:25 10/18/19 08:25 10/18/19 08:25 Course - Vital Signs Vital signs: Temp Pulse Resp BP Pulse Ox 98.1 F 107 H 20 149/88 H 97 10/18/19 08:25 10/18/19 08:25 10/18/19 08:25 10/18/19 08:25 10/18/19 08:25
[2019-10-18 09:56] LABS: ABSOLUTE EOSINOPHILS # (AUTO) 0.1 10^3/uL (0.0-0.6); ABSOLUTE LYMPHOCYTES (AUTO) 2.4 10^3/uL (0.5-4.7); ABSOLUTE MONOCYTES (AUTO) 0.6 10^3/uL (0.1-1.4); ABSOLUTE NEUT (AUTO) 0.9 10^3/uL (1.7-8.2); BASOPHILS % (AUTO) 0.5 % (0-2); EOSINOPHILS % (AUTO) 2.5 % (0-6); HEMATOCRIT 43.6 % (36.0-47.0); HEMOGLOBIN 14.9 g/dL (12.0-15.5); LYMPHOCYTES % (AUTO) 58.3 % (13-45); MEAN CORPUSCULAR HGB CONC 34.3 g/dL (32.0-36.0); MEAN CORPUSCULAR VOLUME 91 fl (80-97); MONOCYTES % (AUTO) 15.4 % (3-13); PLATELET COUNT 229 10^3/uL (150-450); RED BLOOD COUNT 4.82 10^6/uL (3.72-5.28); RED CELL DISTRIBUTION WIDTH 13.8 % (11.5-14.0); SEGMENTED NEUTROPHILS % (AUTO) 23.3 % (42-78); TOTAL CELLS COUNTED % (AUTO) 100 %
--- NOTE | 2019-10-18 10:07 | RADIOLOGY REPORT (SQ) ---
EXAM DESCRIPTION: CHEST 2 VIEWS COMPLETED DATE/TIME: 10/18/2019 9:48 am REASON FOR STUDY: SOB COMPARISON: 06/28/2019 EXAM PARAMETERS: NUMBER OF VIEWS: two views TECHNIQUE: Digital Frontal and Lateral radiographic views of the chest acquired. RADIATION DOSE: NA LIMITATIONS: none FINDINGS: LUNGS AND PLEURA: No opacities, masses or pneumothorax. No pleural effusion. MEDIASTINUM AND HILAR STRUCTURES: No masses or contour abnormalities. HEART AND VASCULAR STRUCTURES: Heart normal size. No evidence for failure. BONES: No acute findings. HARDWARE: None in the chest. OTHER: No other significant finding. IMPRESSION: NO ACUTE RADIOGRAPHIC FINDING IN THE CHEST. TECHNICAL DOCUMENTATION: JOB ID: [id number] [employer]- All Rights Reserved Reading location - IP/workstation name: [email or web address]
[2019-10-18 10:13] LABS: ALBUMIN 4.3 g/dL (3.5-5.0); ALKALINE PHOSPHATASE 93 U/L (38-126); ANION GAP 10 (5-19); ASPARTATE AMINO TRANSFERASE 34 U/L (14-36); BILIRUBIN,DIRECT 0.2 mg/dL (0.0-0.4); BILIRUBIN,TOTAL 0.7 mg/dL (0.2-1.3); BLOOD UREA NITROGEN 10 mg/dL (7-20); CALCIUM 9.3 mg/dL (8.4-10.2); CARBON DIOXIDE 29 mmol/L (22-30); CHLORIDE 102 mmol/L (98-107); GLUCOSE 113 mg/dL (75-110); POTASSIUM 4.3 mmol/L (3.6-5.0); TOTAL PROTEIN 8.6 g/dL (6.3-8.2)
[2019-10-18 11:48] LABS: APPEARANCE,URINE TURBID; BILIRUBIN,URINE NEGATIVE (NEGATIVE); GLUCOSE, URINE NEGATIVE (NEGATIVE); KETONES,URINE NEGATIVE (NEGATIVE); LEUKOCYTE ESTERASE,URINE NEGATIVE (NEGATIVE); NITRITE,URINE NEGATIVE (NEGATIVE); PROTEIN,URINE 30 mg/dL (NEGATIVE); URINE SPECIFIC GRAVITY 1.025
[2019-10-18 11:51] LABS: COLOR,URINE YELLOW
--- NOTE | 2019-10-18 12:21 | ER Document Report ---
ED General - General Chief Complaint: Flu Symptoms Stated Complaint: FLU SYMPTOMS Time Seen by Provider: 10/18/19 11:29 Notes: 38-year-old female presents the emergency department stating that since she was diagnosed with the flu on Tuesday she has now developed lower abdominal pain. Patient states she has not had a bowel movement since Tuesday so she does not know if the pain is coming from constipation or if it is something else. States that the pain is cramping and stabbing in nature in her lower abdomen and mostly over her suprapubic area. Also complains of persistent nasal congestion and chest congestion, but states her fever resolved yesterday. Denies any nausea or vomiting at this time. Is still passing gas. TRAVEL OUTSIDE OF THE [place] IN LAST 30 DAYS: No - Related Data Allergies/Adverse Reactions: aspirin [Aspirin] Allergy (Verified 03/22/19 07:19) azithromycin [From Zithromax] Allergy (Verified 03/22/19 07:19) morphine [Morphine] Allergy (Verified 03/22/19 07:19) Penicillins Allergy (Verified 03/22/19 07:19) Past Medical History - General Information source: Patient - Social History Smoking Status: Never Smoker Frequency of alcohol use: None Drug Abuse: None Family History: Reviewed & Not Pertinent Patient has suicidal ideation: No Patient has homicidal ideation: No Pulmonary Medical History: Reports: Hx Asthma, Hx Bronchitis Renal/ Medical History: Denies: Hx Peritoneal Dialysis - Immunizations Hx Diphtheria, Pertussis, Tetanus Vaccination: Yes Hx Pneumococcal Vaccination: 10/10/00 Review of Systems - Review of Systems Constitutional: See HPI, Fever - Resolved yesterday. EENT: See HPI, Nose congestion, Nose discharge Respiratory: See HPI Gastrointestinal: See HPI -: Yes All other systems reviewed and negative Physical Exam - Vital signs Vitals: Temp Pulse Resp BP Pulse Ox 98.1 F 107 H 20 149/88 H 97 10/18/19 08:25 10/18/19 08:25 10/18/19 08:25 10/18/19 08:25 10/18/19 08:25 Interpretation: Hypertensive, Tachycardic - Notes Notes: GENERAL: Alert, interacts well. No acute distress. HEAD: Normocephalic, atraumatic EYES: Pupils equal, round and reactive to light, extraocular movements intact. ENT: Oral mucosa moist, tongue midline. NECK: Full range of motion, supple, trachea midline. LUNGS: Clear to auscultation bilaterally, no wheezes, rales or rhonchi, no respiratory distress. Intermittent dry cough. HEART: Regular rate and rhythm, no murmurs, gallops, rubs. ABDOMEN: Soft, suprapubic tenderness to palpation, no right lower quadrant tenderness to palpation, nondistended, bowel sounds present in all 4 quadrants. EXTREMITIES: Moves all 4 extremities spontaneously, no edema, radial and dorsalis pedis pulses 2/4 bilaterally. No cyanosis. NEUROLOGICAL: Alert and oriented x3, normal speech. PSYCH: Normal mood, normal affect. SKIN: Warm, Dry, normal turgor, no rashes or lesions noted. Course - Re-evaluation Re-evalutation: 10/18/19 12:34 CBC unremarkable, CMP grossly unremarkable, lipase normal, urinalysis does not show any signs of infection. Rapid strep is negative, chest x-ray is negative, acute abdominal series does not show any signs of obstruction per my interpretation. Patient is only tender suprapubically, she is not tender over her right lower quadrant, with a normal white count and a resolved fever I find it very unlikely the patient has appendicitis. Discussed this with the patient, patient has not had a bowel movement in 7 days. At this point the patient is willing to try laxatives and stool softeners, if after having several bowel movements her pain worsens rather than improves or if she develops a fever again patient will return to the emergency department and we will consider CAT scan for appendicitis at that time. Patient is discharged home. - Vital Signs Vital signs: Temp Pulse Resp BP Pulse Ox 98.1 F 107 H 20 149/88 H 97 10/18/19 08:25 10/18/19 08:25 10/18/19 08:25 10/18/19 08:25 10/18/19 08:25 - Laboratory Result Diagrams: 10/18/19 09:29 10/18/19 09:29 Laboratory results interpreted by me: 10/18/19 10/18/19 10/18/19 09:04 09:29 09:29 Lymph % (Auto) 58.3 H [place] % (Auto) 15.4 H Absolute Neuts (auto) 0.9 L Seg Neutrophils % 23.3 L Glucose 113 H Total Protein 8.6 H Urine Protein 30 H Urine Urobilinogen 2.0 H Discharge - Discharge Clinical Impression: Influenza, Lower abdominal pain Constipation Qualifiers: Constipation type: unspecified constipation type Qualified Code(s): K59.00 - Co nstipation, unspecified Condition: Stable Disposition: HOME, SELF-CARE Additional Instructions: Today your white blood cell count was normal and you did not have a fever. This makes an infectious process such as appendicitis less likely. Your x-ray did show a moderate amount of stool. You have not had a bowel movement since Tuesday. I would like to try giving you a laxative known as magnesium citrate to see if having a bowel movement decreases your abdominal pain. If it does decrease your pain you should then start taking MiraLAX. Please dissolve 1 scoop of MiraLAX in a glass of water once a day to treat constipation. You may increase to twice a day if needed to create soft bowel movements and you may decrease to every other day if you develop diarrhea. If your pain increases or you develop a fever or any new or concerning symptoms I would like you to return to the emergency department where we will consider doing a CAT scan to look for appendicitis. Forms: Return to Work
[2019-10-18] MEDS ORDERED: MAGNESIUM CITRATE 296 ML BOTTLE PO ONE (12:33)
--- NOTE | 2019-10-18 12:47 | RADIOLOGY REPORT (SQ) ---
EXAM DESCRIPTION: ABDOMEN 2 VIEWS COMPLETED DATE/TIME: 10/18/2019 12:29 pm REASON FOR STUDY: low abd pain, no BMx6 days COMPARISON: 01/15/2019 NUMBER OF VIEWS: One view. TECHNIQUE: Supine radiographic image of the abdomen acquired. LIMITATIONS: None. FINDINGS: BOWEL GAS PATTERN: Normal bowel gas pattern. No dilated loops. CALCIFICATIONS: No suspicious calcifications. SOFT TISSUES: No gross mass or suggestion of organomegaly. HARDWARE: None in the abdomen. BONES: No acute fracture. No worrisome bone lesions. OTHER: No other significant finding. IMPRESSION: NO RADIOGRAPHIC EVIDENCE FOR ACUTE ABDOMINAL DISEASE. TECHNICAL DOCUMENTATION: JOB ID: [id number] [employer]- All Rights Reserved Reading location - IP/workstation name: [email or web address]
[2019-10-18 13:00] VITALS: BP 129/84
== END 2019-10-18 13:01 | disposition home or self-care (01) ==
LOC: ER 08:21
DX: J11.1 Influenza due to unidentified influenza virus with other respiratory manifestations (principal); K59.00 Constipation, unspecified; R10.30 Lower abdominal pain, unspecified; R09.81 Nasal congestion; Z88.6 Allergy status to analgesic agent; Z88.0 Allergy status to penicillin; Z88.3 Allergy status to other anti-infective agents
CPT/HCPCS: 99283; 96360; 36415; 87070; 87880; 83690; 85025; 81025; 80053; 81001; 74019; 71046; J3490; J7030

== ENCOUNTER 2019-10-24 07:32 | Emergency (ER) | payer SELFPAY ==
[2019-10-24] MEDS ORDERED: METHYLPREDNISOLONE INJ 125 MG/2 ML SDV IV ONE (08:04)
[2019-10-24] MEDS: ALBUTEROL SULFATE 0.083% NEB 2.5 MG/3 ML AMPUL NEB SCH ×2 (08:17→08:34)
[2019-10-24 08:34] LABS: ABSOLUTE EOSINOPHILS # (AUTO) 0.1 10^3/uL (0.0-0.6); ABSOLUTE LYMPHOCYTES (AUTO) 2.6 10^3/uL (0.5-4.7); ABSOLUTE MONOCYTES (AUTO) 0.5 10^3/uL (0.1-1.4); ABSOLUTE NEUT (AUTO) 1.6 10^3/uL (1.7-8.2); BASOPHILS % (AUTO) 0.5 % (0-2); EOSINOPHILS % (AUTO) 1.7 % (0-6); HEMATOCRIT 36.9 % (36.0-47.0); HEMOGLOBIN 12.7 g/dL (12.0-15.5); LYMPHOCYTES % (AUTO) 53.8 % (13-45); MEAN CORPUSCULAR HEMOGLOBIN 31.1 pg (27.0-33.4); MEAN CORPUSCULAR HGB CONC 34.4 g/dL (32.0-36.0); MEAN CORPUSCULAR VOLUME 91 fl (80-97); MONOCYTES % (AUTO) 11.3 % (3-13); PLATELET COUNT 331 10^3/uL (150-450); RED BLOOD COUNT 4.07 10^6/uL (3.72-5.28); RED CELL DISTRIBUTION WIDTH 13.5 % (11.5-14.0); SEGMENTED NEUTROPHILS % (AUTO) 32.7 % (42-78); TOTAL CELLS COUNTED % (AUTO) 100 %; WHITE BLOOD COUNT 4.7 10^3/uL (4.0-10.5)
[2019-10-24 09:03] LABS: ALBUMIN 3.9 g/dL (3.5-5.0); ALKALINE PHOSPHATASE 97 U/L (38-126); ANION GAP 6 (5-19); ASPARTATE AMINO TRANSFERASE 28 U/L (14-36); BILIRUBIN,DIRECT 0.2 mg/dL (0.0-0.4); BILIRUBIN,TOTAL 0.5 mg/dL (0.2-1.3); BLOOD UREA NITROGEN 11 mg/dL (7-20); CALCIUM 9.1 mg/dL (8.4-10.2); CARBON DIOXIDE 28 mmol/L (22-30); CHLORIDE 106 mmol/L (98-107); GLUCOSE 98 mg/dL (75-110); POTASSIUM 4.3 mmol/L (3.6-5.0); TOTAL PROTEIN 7.6 g/dL (6.3-8.2)
--- NOTE | 2019-10-24 09:23 | RADIOLOGY REPORT (SQ) ---
EXAM DESCRIPTION: CHEST 2 VIEWS COMPLETED DATE/TIME: 10/24/2019 9:09 am REASON FOR STUDY: shortness of breath COMPARISON: None. EXAM PARAMETERS: NUMBER OF VIEWS: two views TECHNIQUE: PA and lateral views of the chest were obtained. RADIATION DOSE: NA LIMITATIONS: none FINDINGS: LUNGS AND PLEURA: No consolidation, pleural effusion or pneumothorax. MEDIASTINUM AND HILAR STRUCTURES: No mediastinal or hilar contour abnormality. HEART AND VASCULAR STRUCTURES: The cardiac silhouette and pulmonary vasculature are within normal watson its. BONES: No acute findings. HARDWARE: None in the chest. OTHER: No other finding. IMPRESSION: No acute cardiopulmonary process. TECHNICAL DOCUMENTATION: JOB ID: [id number] [employer]- All Rights Reserved Reading location - IP/workstation name: [email or web address]
[2019-10-24] MEDS ORDERED: ACETAMINOPHEN WITH CODEINE #3 TABLET PO ONE (09:49)
[2019-10-24] MEDS ORDERED: LIDOCAINE 1% INJ-PF (10 MG/ML) 30 ML SDV NEB ONE (09:49)
[2019-10-24] MEDS ORDERED: NORMAL SALINE 1000 ML 1,000 ML IV ONE (09:50)
--- NOTE | 2019-10-24 09:57 | ER Document Report ---
ED General - General Chief Complaint: Shortness Of Breath Stated Complaint: CONGESTION/COUGH Time Seen by Provider: 10/24/19 09:20 TRAVEL OUTSIDE OF THE [place] IN LAST 30 DAYS: No - HPI Notes: 38-year-old female with a lifelong history of asthma with a chief complaint of coughing and wheezing. Patient was seen here 3 days ago by another provider with a flulike illness. Coughing much worse today. No fever. No sputum production. No nausea vomiting. Patient is a non-smoker. She denies occupational exposure to dust, fumes or extremes of temperature. Patient reports development of asthma in childhood. She has been hospitalized for this multiple times in the past but is never been admitted to the critical care unit. Patient uses a metered-dose inhaler on a as needed basis. No other regular m edications. No other long-term medical problems. - Related Data Allergies/Adverse Reactions: aspirin [Aspirin] Allergy (Verified 03/22/19 07:19) azithromycin [From Zithromax] Allergy (Verified 03/22/19 07:19) morphine [Morphine] Allergy (Verified 03/22/19 07:19) Penicillins Allergy (Verified 03/22/19 07:19) Home Medications: albuterol Past Medical History - General Information source: Patient - Social History Smoking Status: Never Smoker Family History: Reviewed & Not Pertinent Patient has suicidal ideation: No Patient has homicidal ideation: No Pulmonary Medical History: Reports: Hx Asthma, Hx Bronchitis Renal/ Medical History: Denies: Hx Peritoneal Dialysis - Immunizations Hx Diphtheria, Pertussis, Tetanus Vaccination: Yes Hx Pneumococcal Vaccination: 10/10/00 Review of Systems - Review of Systems Notes: Constitutional: Negative for fever. HENT: Negative for sore throat. Eyes: Negative for visual changes. Cardiovascular: Negative for chest pain. Respiratory: As per HPI. Gastrointestinal: Negative for abdominal pain, vomiting or diarrhea. Genitourinary: Negative for dysuria. Musculoskeletal: Negative for back pain. Skin: Negative for rash. Neurological: Negative for headaches, weakness or numbness. 10 point ROS negative except as marked above and in HPI. Physical Exam - Vital signs Vitals: Temp Pulse Resp BP Pulse Ox 97.9 F 82 16 151/92 H 98 10/24/19 07:35 10/24/19 07:35 10/24/19 07:35 10/24/19 07:35 10/24/19 07:35 - Notes Notes: GENERAL: Well-developed well-nourished female approximately stated age who has a persistent dry cough and audible wheezes. SKIN: Good turgor no rashes. HEAD: Normocephalic atraumatic. EYES: PERRLA. EOMI. Conjunctivae and sclerae clear. EARS: CANALS AND TMS CLEAR. NOSE: CLEAR. MOUTH: Moist mucosa. Good dentition. No stridor or edema. No drooling. NECK: Supple. No masses or thyromegaly. No adenopathy. Carotids 2+ without bruits. No JVD. BACK: Symmetrical without tenderness. CHEST: Continuous dry cough. Respirations unlabored. Breath sounds symmetrical with end expiratory wheezes bilaterally. HEART: Regular rhythm. No murmur gallop or rub. ABDOMEN: Soft nontender without masses, organomegaly or rebound. Bowel sounds normally active. No bruits. GENITALIA: Deferred. EXTREMITIES: No edema. No calf tenderness. Cap refill less than 1.5 seconds. Dorsalis pedis and posterior tibial pulses 3+ and symmetrical. NEUROLOGICAL: GCS 15. Alert and oriented x3. Normal gait. Fluent speech. Cranial nerves II through XII intact. Sensorimotor and cerebellar normal. Normal tone. PSYCHIATRIC: Appropriate affect. He has Course - Re-evaluation Re-evalutation: 10/24/19 09:58 Asthma exacerbation triggered by viral illness. Treatment here will include IV normal saline, IV Solu-Medrol, nebulizer treatments and oral Tylenol with codeine. Anticipate outpatient management if wheezes are improved. 10/24/19 11:42 Minimal end expiratory wheezes now. Normal oxygenation. Coughing has improved. Feel she is stable for outpatient management. - Vital Signs Vital signs: Temp Pulse Resp BP Pulse Ox 97.9 F 82 16 151/92 H 98 10/24/19 07:35 10/24/19 07:35 10/24/19 07:35 10/24/19 07:35 10/24/19 07:35 - Laboratory Result Diagrams: 10/24/19 08:15 10/24/19 08:15 Laboratory results interpreted by me: 10/24/19 08:15 Lymph % (Auto) 53.8 H Absolute Neuts (auto) 1.6 L Seg Neutrophils % 32.7 L - Diagnostic Test Radiology reviewed: Reports reviewed Radiology results interpreted by me: 10/24/19 09:58 No infiltrate per radiologist Discharge - Discharge Clinical Impression: Asthma exacerbation Disposition: HOME, SELF-CARE Additional Instructions: Asthma You have been diagnosed as having asthma. This is a condition where there is episodic tightness in the bronchial tubes. Allergies, infections, and polluted or cold air may be contributing factors. Emergency treatment of a severe asthma attack may include adrenaline shots, or bronchodilator aerosol. You may feel lightheaded, have a decreased exercise tolerance and a rapid pulse for an hour or two. Rest and get plenty of fluids. Home treatment of asthma requires bronchodilator drugs. These can be administered by injection, inhalation, or by mouth. Antibiotics and corticosteroids may be required for some patients. You should avoid chemical fumes, dusts, pollens, and exercising in very cold or dry air. If you smoke, stop!! If you develop a fever, increased wheezing, chest pain, or severe shortness of breath, you should contact the doctor immediately You will be provided a work note for the next 3 days. Take prescribed medications as directed. Follow-up with referral physician as directed. Return here as needed for new or worsening symptoms: Pain that is worsening or unimproved Uncontrolled vomiting High fever or shaking chills Overall worsening Prescriptions: Acetaminophen [Tylenol 325 mg Tablet] 325 mg PO Q6HP PRN #20 tablet PRN Reason: Albuterol Sulfate [Albuterol Sulfate 5mg/1 mL] 5 mg NEB Q4 PRN #30 ml PRN Reason: Prednisone [Deltasone 20 mg Tablet] 2 tab PO DAILY 5 Days tablet Forms: Return to Work Referrals: [facility] [Provider Group] - Follow up as needed
[2019-10-24 11:58] VITALS: BP 136/66
== END 2019-10-24 11:58 | disposition home or self-care (01) ==
LOC: ER 07:32
DX: J45.901 Unspecified asthma with (acute) exacerbation (principal); R05 Cough; Z88.6 Allergy status to analgesic agent
CPT/HCPCS: 94640 ×2; 99285; 96361; 96374; 36415; 85025; 80053; 71046; J3490; J2930; J7030

== ENCOUNTER 2020-08-03 16:38 | Emergency (ER) | payer SELFPAY ==
--- NOTE | 2020-08-03 17:12 | ER Document Report ---
ED General - General Chief Complaint: Fever Stated Complaint: FEVER Notes: Patient is a 39-year-old -Tajik female with a history of asthma who presents the emergency department with a chief complaint of fever and body aches that began this morning. 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 She states that she wears a mask and everyone enters the building wears a mask at work. States that she is having some soreness in the lower back. Denies any urinary complaints associated. States fever controllable by Tylenol [id number]. Denies any chest pain or shortness of breath. No cough. No abdominal pain, vomiting or diarrhea. No recent travel TRAVEL OUTSIDE OF THE [place] IN LAST 30 DAYS: No - Related Data Allergies/Adverse Reactions: aspirin [Aspirin] Allergy (Verified 08/03/20 16:48) azithromycin [From Zithromax] Allergy (Verified 08/03/20 16:48) morphine [Morphine] Allergy (Verified 08/03/20 16:48) Penicillins Allergy (Verified 08/03/20 16:48) Home Medications: albuterol inhaler Past Medical History - Social History Smoking Status: Former Smoker Family History: Reviewed & Not Pertinent Patient has homicidal ideation: No Pulmonary Medical History: Reports: Hx Asthma, Hx Bronchitis Renal/ Medical History: Denies: Hx Peritoneal Dialysis - Immunizations Hx Diphtheria, Pertussis, Tetanus Vaccination: Yes Hx Pneumococcal Vaccination: 10/10/00 Review of Systems - Review of Systems Constitutional: Fever EENT: denies: Nose congestion Cardiovascular: denies: Dizziness Respiratory: denies: Sputum Gastrointestinal: denies: Constipation Genitourinary: denies: Flank pain Female Genitourinary: denies: Irregular period Musculoskeletal: denies: Deformity Skin: denies: Lesions Hematologic/Lymphatic: denies: Easy bleeding Neurological/Psychological: denies: Weakness Physical Exam - Vital signs Vitals: Temp Pulse Resp BP Pulse Ox 99.6 F 106 H 18 142/92 H 99 08/03/20 16:48 08/03/20 16:48 08/03/20 16:48 08/03/20 16:48 08/03/20 16:48 - General General appearance: Appears well, Alert In distress: None - HEENT Head: Normocephalic, Atraumatic Eyes: Normal Conjunctiva: Normal Pupils: PERRL Ears: Normal External canal: Normal Tympanic membrane: Normal Nasal: Normal Mouth/Lips: Normal Mucous membranes: Normal Pharynx: Normal Neck: Normal - Respiratory Respiratory status: No respiratory distress Chest status: Nontender Breath sounds: Normal Chest palpation: Normal - Cardiovascular Rhythm: Regular Heart sounds: Normal auscultation Murmur: No - Neurological Neuro grossly intact: Yes Cognition: Normal Orientation: AAOx4 - Psychological Associated symptoms: Normal affect, Normal mood - Skin Skin Temperature: Warm Skin Moisture: Dry Skin Color: Normal Course - Re-evaluation Re-evalutation: 08/03/20 21:05 Flu swabs negative. Chest x-ray negative for any acute process per radiologist. Patient's history and physical consistent with a viral syndrome. She will be given a note for work. Counseled regarding rest and hydration. Discussed with her the importance of outpatient follow-up with her regular doctor and advised that she return here or any ER immediately with any new, persistent or worsening symptoms. She verbalized understood and agreed. - Vital Signs Vital signs: Temp Pulse Resp BP Pulse Ox 99.6 F 106 H 18 142/92 H 99 08/03/20 16:48 08/03/20 16:48 08/03/20 16:48 08/03/20 16:48 08/03/20 16:48 Discharge - Discharge Clinical Impression: Viral syndrome Condition: Stable Disposition: HOME, SELF-CARE Instructions: Viral Syndrome (OM) Additional Instructions: Follow-up with your regular doctor in 2 to 3 days for reevaluation. Return here or any ER immediately with any new, persistent or worsening symptoms. Forms: Return to Work Referrals: [facility] [NO LOCAL MD] - Follow up as needed
--- NOTE | 2020-08-03 17:39 | RADIOLOGY REPORT (SQ) ---
EXAM DESCRIPTION: CHEST SINGLE VIEW IMAGES COMPLETED DATE/TIME: 08/03/2020 5:24 pm REASON FOR STUDY: fever COMPARISON: None. EXAM PARAMETERS: NUMBER OF VIEWS: One view. TECHNIQUE: Single frontal radiographic view of the chest acquired. RADIATION DOSE: NA LIMITATIONS: None. FINDINGS: LUNGS AND PLEURA: No opacities, masses or pneumothorax. No pleural effusion. MEDIASTINUM AND HILAR STRUCTURES: No masses. Contour normal. HEART AND VASCULAR STRUCTURES: Heart normal in size. Normal vasculature. BONES: No acute findings. HARDWARE: None in the chest. OTHER: No other significant finding. IMPRESSION: NO ACUTE RADIOGRAPHIC FINDING IN THE CHEST. TECHNICAL DOCUMENTATION: JOB ID: [id number] 2010 [employer]- All Rights Reserved Reading location - IP/workstation name: [email or web address]
[2020-08-03 20:51] LABS: A TYPE INFLUENZA AG NEGATIVE (NEGATIVE); B INFLUENZA AG NEGATIVE (NEGATIVE)
[2020-08-03 21:08] VITALS: BP 136/88
== END 2020-08-03 21:12 | disposition home or self-care (01) ==
LOC: ER 16:38
DX: B34.9 Viral infection, unspecified (principal); R50.9 Fever, unspecified; R52 Pain, unspecified; J45.909 Unspecified asthma, uncomplicated; Z79.899 Other long term (current) drug therapy; Z87.891 Personal history of nicotine dependence; Z88.8 Allergy status to other drugs, medicaments and biological substances; Z88.1 Allergy status to other antibiotic agents; Z88.6 Allergy status to analgesic agent; Z88.5 Allergy status to narcotic agent; Z88.0 Allergy status to penicillin
CPT/HCPCS: 71045; 87804; 99284